=== PATIENT | male | born 1950 | race Caucasian/White ===

== ENCOUNTER 2020-07-10 14:38 | Outpatient (CLI) | payer MEDICARE, BC, OTHER, SELFPAY ==
--- NOTE | ~2020-07-10 | XR_ITS ---
EXAMINATION: XR hip BI 2V w AP pelvis EXAM DATE: 07/10/2020 15:07 INDICATION: M19.90 - Unspecified osteoarthritis, unspecified site. No injury. TECHNIQUE: Each hip imaged independently (separate right and also left hip) 'frog leg' and frontal p rojections for interpretation. Frontal projection pelvis. There is no prior study for comparison. FINDINGS: No radiographic evidence of hip avascular necrosis. There is mild to moderate symmetric bi lateral hip primary osteoarthritis. There is an indeterminate 1.5 cm sclerotic region projecting ove r the right iliac bone. Could be bone island but can't exclude osteoblastic disease. Probable moderat e to severe L5-S1 disc disease. There are no acute fractures identified. IMPRESSION: 1. Indeterminate left iliac sclerotic focus; recommend correlating with PSA and bone scan. 2. Mild to moderate bilateral hip osteoarthritis. Reviewed, dictated and finalized at location A. SEAT TRIMMER IMPRESSION: 1. Indeterminate left iliac sclerotic focus; recommend correlating with PSA an d bone scan. 2. Mild to moderate bilateral hip osteoarthritis.
== END 2020-07-10 14:39 | disposition home or self-care (01) ==
PROVIDERS: PCP Internal Medicine; Visit Provider Internal Medicine
DX: M16.0 Bilateral primary osteoarthritis of hip (principal)
CPT/HCPCS: 73521

== ENCOUNTER 2020-08-03 10:13 | Outpatient (CLI) | payer MEDICARE, BC, OTHER, SELFPAY ==
--- NOTE | ~2020-08-03 | US_ITS ---
EXAMINATION: US retroperitoneal comp DATE: 08/03/2020 10:34 INDICATION: Chronic kidney disease TECHNIQUE: Multiple ultrasound grayscale images of the kidneys were obtained. COMPARISON: None. FINDINGS: The right kidney measures 10.9 x 4.8 x 6.6 cm. The left kidney measures 10.2 x 5.7 x 5.4 cm. The kidn eys demonstrate normal echogenicity. There is no hydronephrosis in either kidney. No stones identifi ed. The bladder is normal. IMPRESSION: 1. Normal kidneys without hydronephrosis. Reviewed, dictated and finalized at location B. 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
== END 2020-08-03 10:14 | disposition home or self-care (01) ==
LOC: ANHIMG 10:14
PROVIDERS: PCP Internal Medicine; Visit Provider Internal Medicine
DX: N18.9 Chronic kidney disease, unspecified (principal)
CPT/HCPCS: 76770

== ENCOUNTER 2021-09-04 00:10 | Day surgery (SDC) | payer MEDICARE, BC, OTHER, SELFPAY ==
[2021-08-27 15:36] VITALS: BMI 27.9
[2021-09-04 09:00] VITALS: BP 150/72; PULSE 69; RESP 16; TEMP 36.7; O2SAT 100; BMI 28.8
[2021-09-04 09:47] LABS: Glucose Point of Care 136 mg/dl (65-105)
[2021-09-04] MEDS: LACTATED RINGERS 1,000 ML 150 ML IV CONT (09:49)
--- NOTE | 2021-09-04 10:19 | WPDANESEPPF ---
Anes - Initial Pre Proc Eval Procedure: Operation Date: 09/04/21 10:45 Proposed Procedures p Screening Colonoscopy - Chadd Verduzco MD Date/Time: 09/04/21 10:19 Surgeon: Chadd Verduzco MD Pre Op Diagnosis: neoplasm screening Patient Data Age: 71 Gender: M Height: 1.8 m Weight: 93.7 kg Last Vital Signs Temp 98.0 F 09/04/21 09:00 Pulse 69 09/04/21 09:00 Resp 16 09/04/21 09:00 BP 150/72 H 09/04/21 09:00 Pulse Ox 100 09/04/21 09:00 Allergies Allergy/AdvReac Type Severity Reaction Status Date / Time No Known Allergies Allergy Verified 09/04/21 09:20 Home Medications Medication Instructions Recorded Confirmed Type amiodarone 200 mg PO DAILY 05/28/19 09/04/21 History rivaroxaban [Xarelto] 20 mg PO DAILY 05/28/19 09/04/21 History blood-glucose meter #1 ea 11/01/20 09/04/21 Rx cholecalciferol (vitamin D3) 50 50 mcg PO DAILY #90 cap 11/02/20 09/04/21 Rx mcg (2,000 unit) capsule ezetimibe 10 mg tablet 10 mg PO DAILY #180 tablet 01/14/21 09/04/21 Rx pen needle, diabetic 32 gauge x #100 ea 01/14/21 09/04/21 Rx 5/32 blood sugar diagnostic #300 ea 01/30/21 09/04/21 Rx aspirin 81 mg chewable tablet 81 mg PO DAILY 02/15/21 09/04/21 History empagliflozin 25 mg tablet 25 mg PO DAILY #90 tablet 06/13/21 09/04/21 Rx semaglutide 1 mg/dose (4 mg/3 mL) 1 mg SUBCUT WEEKLY #3 ml 06/14/21 09/04/21 Rx subcutaneous pen injector rosuvastatin 40 mg tablet 40 mg PO DAILY #90 tablet 07/16/21 09/04/21 Rx sildenafil 100 mg tablet 100 mg PO DAILY PRN #30 tablet 07/18/21 09/04/21 Rx amlodipine 5 mg tablet 5 mg PO DAILY #30 tablet 07/31/21 09/04/21 Rx metoprolol tartrate 25 mg tablet 12.5 mg PO BID #30 tablet 08/04/21 09/04/21 Rx telmisartan 10 mg PO DAILY 08/27/21 09/04/21 History Laboratory Tests 09/04/21 09:26 POC Capillary Glucose 136 mg/dl H mg/dl (65-105) Patient hx anesthesia problems: none Family hx anesthesia problems: none Results Review: All pre-operative results and documents have been reviewed as part of the pre-operative evaluation. [facility] Past Medical History Medical History (Updated 07/18/21 @ 09:28 by Jones Kuhn MD) A-fib resolved Finger fracture Type II diabetes mellitus Surgical History Surgical History (Updated 07/10/20 @ 10:51 by Jones Kuhn MD) Hx of tonsillectomy Stented coronary artery x3 Social History Social History (Updated 07/18/21 @ 07:56 by Tara Carreno) Smoking status: Never smoker Second hand tobacco smoke exposure: Yes Alcohol intake: never Alcohol use details: Rarely Substance use: never Substance use type: does not use Living arrangements: with family Gender identity (if verbalized by the patient): Male Spiritual care concerns: No Anes - Eval Final PreProcedure Day of Procedure 09/04/21 10:19 Patient weight: overweight Heart: regular rate and rhythm Lungs: clear to auscultation Airway: Mallampati scale class II Neurological: alert and oriented Last oral intake: >/= 8 hours ASA classification: III Emergent: no Anesthetic plan: proceed Anesthesia type and monitoring: general GIVS and standard monitoring Results Review: All pre-operative results and documents have been reviewed as part of the pre-operative evaluation. Informed Consent: The patient's anesthetic plan and its attendant risks and benefits were discussed with the patient/family/POA. Questions were solicited and answers provided to the satisfaction of the patient/family/POA.
--- NOTE | 2021-09-04 10:38 | PM.HPGS ---
History of Present Illness History of Present Illness Consent: Risks, benefits, and alternatives have been discussed and questions answered. Patient agrees to proceed with procedure. Chief complaint: neoplasm screening Narrative: Sabino Pepper is a 71 year old male here for screening colonoscopy, last one 10 years ago. Review of Systems Constitutional: Constitutional: Denies headache(s) and Denies weakness Eyes: Eyes: Denies blurry vision ENT: Reports Normal hearing present, Denies headache(s) and Denies neck pain Cardiovascular: Cardiovascular: Denies chest pain and Denies dyspnea Respiratory: Respiratory: Denies dyspnea Gastrointestinal: Gastrointestinal: Reports no additional gastrointestinal complaints Genitourinary: Genitourinary: Denies dysuria Musculoskeletal: Musculoskeletal: Denies neck pain Integumentary/Breasts: Skin/Breast: Denies dry skin Neurologic: Reports Normal hearing present, Denies headache(s) and Denies weakness Psychiatric: Psychiatric: Denies anxiety Endocrine: Endocrine: Denies change in body appearance Hematologic/Lymphatic: Hematologic/Lymphatic: Denies easy bleeding Allergic/Immunologic: Allergic/Immunologic: Denies urticaria PMFSH Past Medical History Medical History (Updated 07/18/21 @ 09:28 by Jones Kuhn MD) A-fib resolved Finger fracture Type II diabetes mellitus Surgical History Surgical History (Updated 07/10/20 @ 10:51 by Jones Kuhn MD) Hx of tonsillectomy Stented coronary artery x3 Social History Social History (Updated 07/18/21 @ 07:56 by Tara Carreno) Smoking status: Never smoker Second hand tobacco smoke exposure: Yes Alcohol intake: never Alcohol use details: Rarely Substance use: never Substance use type: does not use Living arrangements: with family Gender identity (if verbalized by the patient): Male Spiritual care concerns: No Meds Home Medications and Allergies Home Medications Medication Instructions Recorded Confirmed Type amiodarone 200 mg PO DAILY 05/28/19 09/04/21 History rivaroxaban [Xarelto] 20 mg PO DAILY 05/28/19 09/04/21 History blood-glucose meter #1 ea 11/01/20 09/04/21 Rx cholecalciferol (vitamin D3) 50 50 mcg PO DAILY #90 cap 11/02/20 09/04/21 Rx mcg (2,000 unit) capsule ezetimibe 10 mg tablet 10 mg PO DAILY #180 tablet 01/14/21 09/04/21 Rx pen needle, diabetic 32 gauge x #100 ea 01/14/21 09/04/21 Rx blood sugar diagnostic #300 ea 01/30/21 09/04/21 Rx aspirin 81 mg chewable tablet 81 mg PO DAILY 02/15/21 09/04/21 History empagliflozin 25 mg tablet 25 mg PO DAILY #90 tablet 06/13/21 09/04/21 Rx semaglutide 1 mg/dose (4 mg/3 mL) 1 mg SUBCUT WEEKLY #3 ml 06/14/21 09/04/21 Rx subcutaneous pen injector rosuvastatin 40 mg tablet 40 mg PO DAILY #90 tablet 07/16/21 09/04/21 Rx sildenafil 100 mg tablet 100 mg PO DAILY PRN #30 tablet 07/18/21 09/04/21 Rx amlodipine 5 mg tablet 5 mg PO DAILY #30 tablet 07/31/21 09/04/21 Rx metoprolol tartrate 25 mg tablet 12.5 mg PO BID #30 tablet 08/04/21 09/04/21 Rx telmisartan 10 mg PO DAILY 08/27/21 09/04/21 History Allergies Allergy/AdvReac Type Severity Reaction Status Date / Time No Known Allergies Allergy Verified 09/04/21 09:20 Vital Signs Vital Signs - 24 hr 09/04/21 09:00 Temperature 98.0 F Pulse Rate 69 Respiratory Rate 16 Blood Pressure 150/72 H Pulse Oximetry 100 Exam Const: General: comfortable and no acute distress HENMT: General nose exam: Normal nares present Eyes: General: appearance normal, both eyes and all related structures Neck: Neck: no JVD Resp: Auscultation: clear to auscultation bilaterally Cardio: Rate: regular rate Rhythm: regular rhythm GI: Inspection: non-distended GI Palp: Yes Soft to palpation Skin: General skin exam: normal color Neuro: General: gait normal Speech: normal speech Extrem: General: normal to inspection Psych: Mental Status: mental status grossly norm
[2021-09-04 11:06] VITALS: BP 132/66; PULSE 63; RESP 18; O2SAT 98
[2021-09-04 11:16] VITALS: BP 126/73; PULSE 59; RESP 16; O2SAT 98
[2021-09-04 11:26] VITALS: BP 132/67; PULSE 59; RESP 14; O2SAT 98
== END 2021-09-04 11:36 | disposition home or self-care (01) ==
PROVIDERS: PCP Internal Medicine; Visit Provider Internal Medicine Gastroenterology
PROC: 0DJD8ZZ Inspection of Lower Intestinal Tract, Via Natural or Artificial Opening Endoscopic (ICD-10-PCS; CPT 45378; principal; 2021-09-04 10:45)
DX: Z12.11 Encounter for screening for malignant neoplasm of colon (principal); D12.2 Benign neoplasm of ascending colon; D12.3 Benign neoplasm of transverse colon; D12.4 Benign neoplasm of descending colon; K64.8 Other hemorrhoids; E11.9 Type 2 diabetes mellitus without complications; Z79.899 Other long term (current) drug therapy; Z79.84 Long term (current) use of oral hypoglycemic drugs
CPT/HCPCS: 45385; 82948; 88305; J2704; J7120

== ENCOUNTER 2022-06-20 00:16 | Day surgery (SDC) | payer MEDICARE, BC, OTHER, SELFPAY ==
[2022-06-19 15:38] VITALS: BMI 24.7
[2022-06-20] VITALS (10 sets, daily range): BP systolic 92–132; BP diastolic 58–75; PULSE 58–78; RESP 14–20; TEMP 36.2; O2SAT 94–100; BMI 26.4
--- NOTE | 2022-06-20 07:00 | ECG_ITS ---
Measurements Intervals [place] Rate: 76 P: RI: 0 QRS: 35 QRSD: 106 T: 70 QT: 421 QTc: 473 Interpretive Statements ATRIAL FIBRILLATION ABNORMAL RHYTHM ECG NO PREVIOUS ECG AVAILABLE FOR COMPARISON Electronically Signed On 06-20-2022 10:21:09 PARKING REGULATION ENFORCEMENT OFFICER by Anam Blank M.D.
[2022-06-20 08:22] LABS: Anion Gap 8 mmol/L (8-16); Blood Urea Nitrogen 24 mg/dL (9-20); Carbon Dioxide 27 mmol/L (22-30); Chloride 108 mmol/L (98-107); Estimated CRCL calculation 37 ml/min; Estimated Glomerular Filt Rate 37; Glucose 128 mg/dL (65-110); Potassium 4.4 mmol/L (3.4-5.0); Sodium 143 mmol/L (137-145)
--- NOTE | 2022-06-20 08:30 | ECG_ITS ---
Measurements Intervals [place] Rate: 61 P: 3 CT: 228 QRS: 36 QRSD: 97 T: 70 QT: 429 QTc: 433 Interpretive Statements SINUS RHYTHM WITH FIRST DEGREE AV BLOCK COMPARED TO ECG 06/20/2022 07:12:13 SINUS RHYTHM NOW PRESENT/REPLACES ATRIAL FIBRILLATION FOLLOWING CARDIOVERT Electronically Signed On 06-20-2022 10:21:46 RED CROSS WORKER by Anam Blank M.D.
--- NOTE | 2022-06-20 08:33 | WPDMODSED ---
Moderate Sedation Note-Pt Data Patient Data Diagnosis: Recurrent atrial fibrillation Present Complaint: Lightheadedness Procedure to be performed/Plan: DC cardioversion Allergies Allergy/AdvReac Type Severity Reaction Status Date / Time No Known Allergies Allergy Verified 06/20/22 07:15 Home Medications Medication Instructions Recorded Confirmed Type amiodarone 200 mg tablet 200 mg PO DAILY 05/28/19 06/20/22 History rivaroxaban 20 mg tablet (Xarelto) 20 mg PO DAILY 05/28/19 06/19/22 History blood-glucose meter (FreeStyle #1 ea 11/01/20 01/23/22 Rx Buena Lite kit) cholecalciferol (vitamin D3) 50 50 mcg PO DAILY #90 caps 11/02/20 06/20/22 Rx mcg (2,000 unit) capsule pen needle, diabetic 32 gauge x #100 ea 01/14/21 01/23/22 Rx 5/32 (BD Ultra-Fine Araceli Pen Needle) blood sugar diagnostic (FreeStyle #300 ea 01/30/21 01/23/22 Rx Lite Strips) aspirin 81 mg chewable tablet 81 mg PO DAILY 02/15/21 06/20/22 History tadalafil 20 mg tablet 20 mg PO DAILY PRN sexual activity 01/23/22 06/19/22 Rx #30 tabs ezetimibe 10 mg tablet (Zetia) 10 mg PO DAILY #180 tabs 01/29/22 06/20/22 Rx rosuvastatin 20 mg tablet 20 mg PO DAILY #90 tabs 02/04/22 06/20/22 Rx semaglutide 1 mg/dose (4 mg/3 mL) 1 mg (0.75 mL) subcut WEEKLY #3 mL 04/15/22 06/19/22 Rx subcutaneous pen injector empagliflozin 25 mg tablet 25 mg PO DAILY #90 tabs 06/10/22 06/20/22 Rx (Jardiance) amlodipine 5 mg tablet 5 mg PO PRN 06/19/22 06/19/22 History metoprolol tartrate 25 mg tablet 12.5 mg PO PRN 06/19/22 06/19/22 History telmisartan 20 mg tablet 10 mg PO PRN 06/19/22 06/19/22 History Current Medications: Active Medications Sodium Chloride (Normal Saline Iv) 1,000 mls @ 30 mls/hr IV CONT .Q24H CHON Sedation/Anesthesia: No previous sedation/anesthesia problems (including family history). [facility] Past Medical History Medical History A-fib resolved Finger fracture Type II diabetes mellitus Surgical History Surgical History Hx of tonsillectomy Stented coronary artery x3 Social History Social History Smoking status: Never smoker Second hand tobacco smoke exposure: Yes Alcohol intake: never Alcohol use details: Rarely Substance use: never Substance use type: does not use Living arrangements: with family Additional living arrangements comments: partner Gender identity (if verbalized by the patient): Male Spiritual care concerns: No Mod Sed Physical Exam Physical Exam Pre Procedural Exam: Normal: Appearance, Neck, Throat, Airway, Lungs, Heart Size, Heart Rate, Neuro Exam and Extremities and Variation: Heart Rhythm (Irregularly irregular) Hours since solid foods: 12 Hours since liquid intake: 12 Mallampati Classification: class II Internal Medicine - PN: Obj Da Vital Signs Vital Signs: Vital Signs - 24 hr 06/20/22 07:19 Temperature 36.2 C L Pulse Rate 78 Respiratory Rate 14 Blood Pressure 107/66 Pulse Oximetry 98 Oxygen Delivery Room Air Meds/Results Medications: Active Medications Generic Name Dose Route Start Last Admin Trade Name Freq PRN Reason Stop Dose Admin Sodium Chloride 1,000 mls @ 30 mls/hr 06/20/22 07:00 Normal Saline Iv IV CONT .Q24H [facility] Labs 06/20/22 07:45 Labs: Laboratory Results - last 24 hr 06/20/22 07:45 Sodium 143 Potassium 4.4 Chloride 108 H Carbon Dioxide 27 Anion Gap 8 BUN 24 H Creatinine 1.80 H Estim Creat Clear Calc 37 Estimated GFR 37 L Glucose 128 H Calcium 9.0 Magnesium 2.0 ASA Classification/Sedation ASA Classification/Sedation ASA Class: III Emergent: No Risks: Risks, benefits and alternatives explained and patient/family accepted plan for sedation. Patient re-evaluated immediately prior to sedation.
--- NOTE | 2022-06-20 08:42 | P.PCNCC_ITS ---
Cardiac Cath Procedure Note Date of procedure:: 06/20/22 Performing physician:: Anam Blank MD Indication:: Recurrent atrial fibrillation Brief clinical history:: This is a 72-year-old man with a history of coronary disease with previous interventional revascularization. He also has a history of atrial fibrillation which has been cardioverted several times and is currently taking amiodarone. He was recently seen in the office with a mildly symptomatic recurrence of atrial fibrillation and he admits to not taking his medication. He was placed back on amiodarone 400 mg daily and was scheduled for repeat cardioversion today. Procedure Procedure performed:: DC cardioversion Sedation/Medication given:: Propofol 50 mg IV push Estimated blood loss:: None Procedure note:: Patient was brought to the cardiac catheterization lab holding area in the postabsorptive state the defibrillator patches were placed in the AP position. He was sedated with propofol 50 mg IV push which provided excellent procedural sedation he was then cardioverted with 200 joules x1 shock in a synchronized fashion restoring normal sinus rhythm Findings:: As above Conclusion:: Successful uncomplicated DC cardioversion of atrial fib using 200 joules x1 shock. Patient will be maintained on amiodarone and seen in the office for ECG next week Anam Blank MD [facility]
== END 2022-06-20 10:05 | disposition home or self-care (01) ==
PROVIDERS: PCP Internal Medicine; Visit Provider Specialist
PROC: 5A2204Z Restoration of Cardiac Rhythm, Single (ICD-10-PCS; principal; 2022-06-20 08:30)
DX: I48.91 Unspecified atrial fibrillation (principal); I25.10 Atherosclerotic heart disease of native coronary artery without angina pectoris
CPT/HCPCS: 36415; 80048; 83735; 92960; J2704; J7030

== ENCOUNTER 2024-12-22 00:13 | Day surgery (SDC) | payer MEDICARE, BC, OTHER, SELFPAY ==
[2024-12-16 13:59] VITALS: BMI 24.4
--- NOTE | 2024-12-16 14:18 | PC.NURSE ---
Spoke with PATIENT regarding medication XARELTO. PATIENT verbalizes understanding that the last dose is to be taken on _12/19/2024_ and the Endoscopist will instruct them when to restart after the procedure.
--- OUTSIDE RECORDS SUMMARY | 2024-12-22 00:19 | XMS_ITS | Clinical Summary ---
Author Organization [facility] [address] Address [address] [place] [address] Care Team Providers Care Checker Stocker Name Role Phone Bridgett Monroy NP Primary Care Provider [phone] Allergies No known active allergies Medications aspirin 81 mg tablet take 1 tablet (81MG) by oral route every day 0 2 Active cholecalcifero l (VITAMIN D-3) 50,000 unit capsule TAKING 10,000 DAILY 1 Active semaglutide (OZEMPIC) 2 mg/dose (8 mg/3 mL) pen injector injection 1 Active empagliflozin (JARDIANCE) 25 mg tablet 1 Active rosuvastatin (CRESTOR) 20 mg tablet Take 1 tablet (20 mg total) by mouth daily 4 Active Xarelto 20 mg tablet TAKE 1 TABLET DAILY WITH THE EVENING MEAL 90 tablet 2 4 Active telmisartan (MICARDIS) 20 mg tablet Take 0.5 tablets (10 mg total) by mouth daily 5 Active amiodarone (PACERONE) 200 mg tablet TAKE 1 TABLET DAILY 90 tablet 5 Active amiodarone (PACERONE) 200 mg tablet TAKE 1 TABLET DAILY 90 tablet 5 05/29/20 25 Discontinued Active Problems Problem Noted Date Diagnosed Date Paroxysmal atrial fibrillation 01/01/2017 Status post coronary artery stent placement 12/05 Coronary arteriosclerosis in [place] artery 07/27 Overview (10/09/2016): Coronary arteriosclerosis in [place] artery Encounters Date Type Department Care Team Description 10/10/2024 9:30 AM CDT Office Visit [facility] [address] [place] [address] Jane Welch NP Coronary arteriosclerosis in [place] artery; Lipid screening; Paroxysmal atrial fibrillation (HCC); Chronic anticoagulation; Essential hypertension from Last 3 Months Surgical History Surgery Date Site/Laterality Comments CORONARY STENT PLACEMENT 03/06/2016 - 04/04/2016 2.75 x 23 mm Alpine Xience to the mid LAD CORONARY STENT PLACEMENT 06/05/2014 - 07/05/2014 2.75 x 23 mm Xience stent to the mid LAD, 2.75 x 15 mm Xience stent to the om 1 TONSILLECTOMY AND ADENOIDECTOMY FL FLUORO GUIDED LUMBAR PUNCTURE 01/22/2021 Right VASECTOMY 09/03/1988 - 10/03/1988 FRACTURE SURGERY 1977 Medical History Medical History Date Comments Hypertension Hypertension Pneumonia Pneumonia Coronary artery disease PAF (paroxysmal atrial fibrillation) (HCC) Diabetes (HCC) Clotting disorder since taking Xaralto Brain concussion 1974 Heart disease since 2008 Sleep apnea diagnosed 1993 Chronic kidney disease Family History Medical History Relation Name Comments Early Father Cataldo C Counts Heart attack Father Cataldo C Counts Hypertension Father Cataldo C Counts Obesity Father Cataldo C Counts Clotting disorder Mother Janell Mcdonald Counts Congenital heart disease Mother Janell Mcdonald Counts Early Son Jose Franklin Counts Relation Name Status Comments Father Cataldo Rigoberto Counts (Age 73) Mother Janell Mcdonald Counts (Age 80) Son Jose Franklin Counts Social History Tobacco Use Types Packs/Day Years Used Date Smoking Tobacco: Never Smokeless Tobacco: Never Alcohol Use Standard Drinks/Week Comments Yes 0 (1 standard drink = 0.6 oz pur e alcohol) Sex and Gender Information Value Date Recorded Sex Assigned at Male 09/10/2018 10:45 AM RN X RAY Legal Sex Male 1:19 AM RN X RAY Gender Identity Not on file Sexual Orientation Straight 09/10/2018 10 :45 AM RN X RAY Obstetrics History Last Filed Vital Signs Vital Sign Reading Time Taken Comments Blood Pressure 134/62 10/10/2024 9:52 AM CDT Pulse 62 10/10/2024 9:52 AM CDT Temperature - - Respiratory Rate 16 01/22/2021 10:12 AM CDT Oxygen Saturation 97% 10/10/2024 9:52 AM CDT Inhaled Oxygen Concentration - - Weight 87.1 kg (192 lb) 10/10/2024 9:52 AM CDT Height 182.9 cm (6') 10/10/2024 9:52 AM CDT Body Mass Index 26.04 10/10/2024 9:52 AM CDT Plan of Treatment Health Maintenance Due Date Last Done Comments Colon Cancer Screening-Colonoscopy 1951 Depression Screening 1950 Hepatitis C Screening 1951 Hepatitis B Screening 1969 Zoster Vaccine (1 of 2) 2001 Well Visit 65+ 2016 Fall Risk Assessment 01/22/2022 01/22/2021 DTaP/Tdap/Td Vaccine (2 - Td or Tdap) 08/31/2030 Pneumococcal vaccine 65+ Completed 05/04/2023 Influenza Vaccine Completed 05/31/2024, 04/20/2023 Procedures Procedure Name Priority Date/Time Associated Diagnosis Comments POCT LIPID PANEL Routine 10/10/2024 9:56 AM CDT Lipid screening LIPID PANEL Routine 10/04/2024 from Last 3 Months Results * POCT lipid panel (10/10/2024 9:56 AM CDT) Cholesterol, POC 157 mg/dL HDL, POC 47 mg/dL Triglycerides, POC 185 mg/dL LDL Cholesterol POC 73 mg/dL Chol/HDL Ratio, POC 1.5 Non-HDL Cholesterol, POC 110 mg/dL Cholesterol Total, POC 157 mg/dL Capillary blood 10/10/2024 9 :56 AM CDT Jane Welch NP POINT OF CARE TEST ORDERA BLES Final Result * (ABNORMAL) Lipid panel (10/04/2024) SCRIBED Cholesterol, Total 173 < - 200 [facility] SCRIBED HDL 52(A) > - 40 [facility] SCRIBED LDL 87 < - 100 [facility] SCRIBED Triglycerides 201(A) < - 150 [facility] Blood 10/04/2024 us Historical Provider LAB BLOOD ORDERABLES Fatuma rios Result [facility] from Last 3 Months Insurance [employer] MEDICARE MEDICARE [facility]IC[facility] FOR [facility]ER[facility] Care Teams Checker Stocker Relationship Specialty Start Date End Date Bridgett Monroy NP [address] [place] [address] PCP - General Nurse Practitioner 04/09/23
--- OUTSIDE RECORDS SUMMARY | 2024-12-22 00:19 | XMS_ITS | Referral Summary ---
Author Organization [facility] [address] Address [address] [place] [address] Care Team Providers Care Sample Tester Grinder Name Role Phone Bridgett Monroy NP Primary Care Provider [phone] Encounters Date Type Department Care Team Description 10/10/2024 9:30 AM CDT Office Visit [facility] Card[facility] [address] [place] [address] Jane Welch NP Coronary arteriosclerosis in circle artery; Lipid screening; Paroxysmal atrial fibrillation (HCC); Chronic anticoagulation; Essential hypertension from Last 3 Months Allergies No known active allergies Medications aspirin [...] TAKE 1 TABLET DAILY 90 tablet 5 12/02/19 25 Discontinued Active Problems Problem Noted Date Diagnosed Date Paroxysmal atrial fibrillation 01/01/2017 Status post coronary artery stent placement 12/05 Coronary arteriosclerosis in circle artery 07/27 Overview (10/09/2016): Coronary arteriosclerosis in circle artery Social History Tobacco Use Types Packs/Day Years Used Date Smoking Tobacco: Never Smokeless Tobacco: Never Alcohol Use Standard Drinks/Week Comments Yes 0 (1 standard drink = 0.6 oz pur e alcohol) Sex and Gender Information Value Date Recorded Sex Assigned at Male 09/10/2018 10:45 AM [employer]E [employer] 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 Legal Sex Male 1:19 AM [employer]IGE [employer] 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 Gender Identity Not on file Sexual Orientation Straight 09/10/2018 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 Last Filed Vital Signs Vital Sign Reading [...] 10/10/2024 9:52 AM CDT Plan of Treatment Not on file Procedures Procedure Name Priority Date/Time Associated Diagnosis [...] 201(A) < - 150 [facility] Blood 10/04/2024 Historical Provider LAB BLOOD ORDERABLES Fatuma rios Result [facility] from Last 3 Months Insurance [facility] [employer] MEDICARE MEDICARE FOR LIFE [facility] TRADITIONAL MEDICARE FOR LIFE [facility] Care Teams Sample Tester Grinder Relationship Specialty Start Date End Date Bridgett Monroy NP [address] [place] [address] PCP - General Nurse Practitioner 04/09/23
--- OUTSIDE RECORDS SUMMARY | 2024-12-22 00:19 | XMS_ITS | Continuity of Care Document ---
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 It does not include entries that were removed or entered in error. Problem Status Onset Date Problem Type Date of Resolution Comments Source ASSESSMENT OF PATIENT CONDITION WORK STATUS Inactive Condition DoD red blood in bowel movement (hematochezia) Inactive Condition [facility] UPPER RESPIRATORY INFECTION Inactive Condition DoD HEARING LOSS Active Condition DoD visit: ears/hearing exam for hearing conservation, treatment Active Condition [facility] visit for: services physical chcf Active Condition [facility] REFRACTIVE ERROR Inactive Condition [facility] SINUSITIS ACUTE FRONTAL Inactive Condition [facility] ORTHOSTATIC HYPOTENSION IDIOPATHIC Inactive Condition [facility] GASTROENTERITIS Inactive Condition [facility] ACUTE BRONCHITIS Active Condition [facility] Need For Vaccination Typhoid Active Condition [facility] visit for: screening exam pulmonary tuberculosis Active Condition [facility] Need For Vaccination Hepatitis B Active Condition [facility] Vaccines Prophylactic Need Against Bacterial Diseases Active Condition [facility] visit for: services physical Active Condition Medically cleared for deployment [facility] Atrial fibrillation Active Condition [facility] Benign essential hypertension Active Condition [facility] - Benign paroxysmal positional vertigo Active Condition [facility] Chronic rhinitis Active Condition [facility] CKD - chronic kidney disease Active Condition [facility] Coronary arteriosclerosis Active Condition Aug 31 1 Entered By: RACHNA ZAVALA Comment: s/p PCI 3 stents [facility] Diabetes mellitus without complication Active Condition [facility] Exposure to Potentially Hazardous Substance ([facility] [id number]) Active Condition [facility] Hyperlipidemia Active Condition [facility] ADRYAN - Obstructive sleep apnea Active Condition [facility] Vitamin D deficiency [facility] Diagnosis: ICD-10-CM E11.9 Type 2 diabetes mellitus without complications Active Diagnosis [facility] Diagnosis: ICD-10-CM H81.11 Benign paroxysmal vertigo, right ear Active Diagnosis [facility] Diagnosis: ICD-10-CM G47.33 Obstructive sleep apnea (adult) (pediatric) Active Diagnosis [facility] Diagnosis: ICD-10-CM R06.83 Snoring Active Diagnosis [facility] Diagnosis: ICD-10-CM 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 Medication Details Route Status Patient Instructions Prescription Expires Prescription Number Last Dispense Date Ordering Provider Order Date Order Qty Source AMIODARONE HCL (PACERONE) 200MG TAB TAKE ONE TABLET BY MOUTH ONCE A DAY ORAL ACTIVE JITENDRA ZAVALA N [address] [facility] ASPIRIN 81MG TAB,EC TAKE ONE TABLET BY MOUTH ONCE A DAY ORAL ACTIVE JITENDRA ZAVALA N [address] [facility] EMPAGLIFLOZ IN 25MG TAB TAKE ONE TABLET BY MOUTH ONCE A DAY ORAL ACTIVE MIRIAM FRAZIER [address] [facility] ERGOCALCIFE ROL 1,250MCG (50,000UNIT ) CAP TAKE 1 CAPSULE BY MOUTH EVERY WEEK ORAL ACTIVE JITENDRA ZAVALA N [address] [facility] FLUTICASONE PROPIONATE 50MCG/SPRAY SOLN,NASAL, 16GM INSTILL 2 SPRAYS IN NOSTRIL( S) ONCE A DAY FOR CHRONIC RHINOSIN USITIS (MUST BE USED DIRECTED FOR MINIMUM OF 21 DAYS TO PROVIDE ADEQUATE BENEFITS ) NASAL ACTIVE 03/23/2025 [id number] MIRIAM FRAZIER [address] [facility] FLUTICASONE PROPIONATE 50MCG/SPRAY SOLN,NASAL, 16GM INSTILL 2 SPRAYS IN NOSTRIL( S) ONCE A DAY FOR CHRONIC RHINOSIN USITIS (MUST BE USED DIRECTED FOR MINIMUM OF 21 DAYS TO PROVIDE ADEQUATE BENEFITS ) NASAL DISCONT INUED 11/09/2024 [id number] MIRIAM FRAZIER [address] [facility] RIVAROXABAN 20MG TAB TAKE ONE TABLET BY MOUTH ONCE A DAY ORAL ACTIVE MIRIAM FRAZIER [address] [facility] ROSUVASTATI N [place] 40MG TAB TAKE ONE TABLET BY MOUTH EVERY EVENING ORAL ACTIVE SALLYJITENDRA CLIFFORD N [address] [facility] SEMAGLUTIDE 1MG/0.75ML INJ,SOLEDITH Mitchell N,3ML INJECT 1MG (0.75ML) UNDER THE SKIN EVERY WEEK SUBCUT ANEOUS ACTIVE FREDDIEMIRIAM Maryjane [address] [facility] TELMISARTAN TAB TAKE 10MG BY MOUTH ONCE A DAY ORAL ACTIVE FREDDIEMIRIAM Maryjane [address] [facility] Allergies, Adverse Reactions, Alerts Combined list of allergies from Department of Defense and Veterans Affairs facilities. It does not include entries that were removed or entered in error. Substance Category Reaction Severity Reaction type Status Date Reported Comments Source No Known Allergies Drug allergy (disorder) active 10/13/2007 Mattie Echeverria [place] Immunizations Combined list of available immunizations from the Department of Defense and Veterans Affairs facilities. 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 Status Comments Source INFLUENZA, HIGH-DOSE, TRIVALENT, PF 2023 LIBORIO ALVAREZ LEFT DELTO ID [id number] 135 complet ed [facility] PNEUMOCOCCAL CONJUGATE PCV20, POLYSACCHARID E [id number] CONJUGATE, ADJUVANT, PF 2022 LIBORIO ALVAREZ RIGHT DELTO ID [id number] complet ed [facility] INFLUENZA, INJECTABLE, QUADRIVALENT, PRESERVATIVE FREE 2022 KOLTON RAMÍREZ A LEFT DELTO ID [id number] 150 complet ed Completed Series, [facility] COVID-19 (MODERNA), MRNA, LNP-S, PF, 100 MCG/0.5 ML DOSE 2 2020 207 complet ed MOD; [id number]; [address] [facility] COVID-19 (MODERNA), MRNA, LNP-S, PF, 100 MCG/0.5 ML DOSE 1 2020 207 complet ed MOD; [id number]; [address] [facility] TDAP [address] [facility] influenza virus vaccine, split virus (incl. purified surface antigen)-reti red CODE 1 2007 UNK 15 Unknown (UNK) comple t ed influenza virus vaccine, split virus (incl. purified surface antigen)- retired CODE DoD hepatitis B vaccine, adult dosage 3 2007 [id number] 43 Smithine (SKB) complet ed hepatitis B vaccine, adult dosage DoD influenza virus vaccine, split virus (incl. purified surface antigen)-reti red CODE 1 2006 [id number] 15 Unknown (UNK) complet ed influenza virus vaccine, split virus (incl. purified surface antigen)- retired CODE DoD anthrax vaccine [id number] [facility] ([facility]) complet ed anthrax vaccine DoD hepatitis B vaccine, adult dosage 2 2006 [id number] 43 Smithine (SKB) complet ed hepatitis B vaccine, adult dosage DoD typhoid Vi capsular polysaccharid e vaccine 1 2006 [id number] Sanofi Pasteur ([facility]) complet ed typhoid Vi capsular polysacch aride vaccine DoD tetanus and diphtheria toxoids, adsorbed, preservative free, for adult use (2 Lf of tetanus toxoid and 2 Lf of diphtheria toxoid) 1 2005 UNK 09 Unknown (UNK) comple t ed tetanus and diphtheri a toxoids, adsorbed, preservat thea free, for adult use (2 Lf of tetanus toxoid and 2 Lf of diphtheri a toxoid) DoD influenza virus vaccine, split virus (incl. purified surface antigen)-reti red CODE 1 2004 UNK 15 Sanofi Pasteur ([facility]) complet ed influenza virus vaccine, split virus (incl. purified surface antigen)- retired CODE DoD typhoid Vi capsular polysaccharid e vaccine 1 2004 [id number] Sanofi Pasteur ([facility]) complet ed typhoid Vi capsular polysacch aride vaccine DoD vaccinia (smallpox) vaccine 1 2002 [id number] Michele (RANDA) complet ed vaccinia (smallpox ) vaccine DoD influenza virus vaccine, split virus (incl. purified surface antigen)-reti red CODE 1 2002 [id number] 15 Sanofi Pasteur ([facility]) complet ed influenza virus vaccine, split virus (incl. purified surface antigen)- retired CODE DoD anthrax vaccine 1 2002 [id number] [facility] complet ed anthrax vaccine DoD hepatitis B vaccine, adult dosage 1 2002 [id number] 43 Merck (MSD) complet ed hepatitis B vaccine, adult dosage DoD hepatitis A vaccine, adult dosage 1 2002 [id number] Merck (MSD) complet ed hepatitis A vaccine, adult dosage DoD influenza virus vaccine, whole virus 1 2001 Unknown, Provider [id number] Sanofi Pasteur ([facility]) complet ed influenza virus vaccine, whole virus DoD meningococcal polysaccharid e vaccine (MPSV4) 1 2001 Unknown, Provider [id number] Sanofi Pasteur ([facility]) complet ed meningoco ccal polysacch aride vaccine (MPSV4) DoD hepatitis A vaccine, adult dosage 1 2001 UNK 52 Unknown (UNK) comple t ed hepatitis A vaccine, adult dosage DoD tuberculin skin test; purified protein derivative solution, intradermal 1 2001 Unknown, Provider [id number] Sanofi Pasteur ([facility]) complet ed tuberculi n skin test; purified protein derivativ e solution, intraderm al DoD typhoid Vi capsular polysaccharid e vaccine 1 2001 Unknown, Provider [id number] Sanofi Pasteur ([facility]) complet ed typhoid Vi capsular polysacch aride vaccine DoD tetanus and diphtheria toxoids, adsorbed, preservative free, for adult use (2 Lf of tetanus toxoid and 2 Lf of diphtheria toxoid) 1 1996 UNK 09 Unknown (UNK) comple t ed tetanus and diphtheri a toxoids, adsorbed, preservat thea free, for adult use (2 Lf of tetanus toxoid and 2 Lf of diphtheri a toxoid) DoD measles, mumps and rubella virus vaccine 1 1973 UNK 03 Unknown (UNK) comple t ed measles, mumps and rubella virus vaccine DoD Results Combined list of recent chemistry, hematology and other laboratory results from Department of Defense and Veterans Affairs, ranging from 15 months to all on record, depending upon the facility. Order Name Results Value Reference Range Date Interpretation Specimen Comments Source COMPREHENS THEA METABOLIC PANEL CREATININE [MASS/VOLUM E] IN SERUM OR PLASMA 1.5 mg/dL .7 - 1.3 05/31 H Specimen Type: PLASMA No comment entered. Ordering Provider: MIRIAM FRAZIER Report Released Date/Time : May 23, 2024 12:13 PM Reporting Lab: [facility] [address] [place], [place] [phone] 8 Performin g Lab: [place] [phone] [facility] COMPREHENS THEA METABOLIC PANEL UREA NITROGEN [MASS/VOLUM E] IN SERUM OR PLASMA 15 mg/dL 9.0 - 25.0 05/31 Specimen Type: PLASMA No comment entered. Ordering Provider: MIRIAM FRAZIER Report Released Date/Time : May 23, 2024 12:13 PM Reporting Lab: [place] [phone] Performin g Lab: [place] [address] [facility] COMPREHENS THEA METABOLIC PANEL GLUCOSE [MASS/VOLUM E] IN SERUM OR PLASMA 144 mg/dL 72 - 99 05/31 H Specimen Type: PLASMA No comment entered. Ordering Provider: MIRIAM FRAZIER Report Released Date/Time : May 23, 2024 12:13 PM Reporting Lab: [place] [phone] Performin g Lab: [place] [address] [facility] COMPREHENS THEA METABOLIC PANEL SODIUM [MOLES/VOLU ME] IN SERUM OR PLASMA 138 meq/L 136 - 145 05/31 Specimen Type: PLASMA No comment entered. Ordering Provider: MIRIAM FRAZIER Report Released Date/Time : May 23, 2024 12:13 PM Reporting Lab: [place] [phone] Performin g Lab: [place] [phone] [facility] COMPREHENS THEA METABOLIC PANEL POTASSIUM [MOLES/VOLU ME] IN SERUM OR PLASMA 4.2 meq/L 3.5 - 5 05/31 Specimen Type: PLASMA No comment entered. Ordering Provider: MIRIAM FRAZIER Report Released Date/Time : May 23, 2024 12:13 PM Reporting Lab: [place] [phone] Performin g Lab: [facility] [address] [facility] [phone] [facility] COMPREHENS THEA METABOLIC PANEL CHLORIDE [MOLES/VOLU ME] IN SERUM OR PLASMA 104 meq/L 98 - 107 05/31 Specimen Type: PLASMA No comment entered. Ordering Provider: MIRIAM FRAZIER Report Released Date/Time : May 23, 2024 12:13 PM Reporting Lab: [facility] [address] [facility] [phone] 8 Performin g Lab: [facility] [address] [place] [phone] [facility] COMPREHENS THEA METABOLIC PANEL CARBON DIOXIDE, TOTAL [MOLES/VOLU ME] IN SERUM OR PLASMA 26 meq/L 22 - 31 05/31 Specimen Type: PLASMA No comment entered. Ordering Provider: MIRIAM FRAZIER Report Released Date/Time : May 23, 2024 12:13 PM Reporting Lab: [facility] [address] [place] [phone] Performin g Lab: [facility] [address] [place] [phone] [facility] COMPREHENS THEA METABOLIC PANEL CALCIUM [MASS/VOLUM E] IN SERUM OR PLASMA 9.3 mg/dL 8.4 - 10.4 05/31 Specimen Type: PLASMA No comment entered. Ordering Provider: MIRIAM FRAZIER Report Released Date/Time : May 23, 2024 12:13 PM Reporting Lab: [facility] [address] [place] [phone] Performin g Lab: [facility] [address] [place] [phone] [facility] COMPREHENS THEA METABOLIC PANEL PROTEIN [MASS/VOLUM E] IN SERUM OR PLASMA 6.5 g/dL 6.0 - 8.6 05/31 Specimen Type: PLASMA No comment entered. Ordering Provider: MIRIAM FRAZIER Report Released Date/Time : May 23, 2024 12:13 PM Reporting Lab: [facility] [address] [place] [phone] Performin g Lab: [facility] [address] [place], [place] [phone] [facility] COMPREHENS THEA METABOLIC PANEL ALBUMIN [MASS/VOLUM E] IN SERUM OR PLASMA 3.8 g/dL 3.4 - 5.0 05/31 Specimen Type: PLASMA No comment entered. Ordering Provider: MIRIAM FRAZIER Report Released Date/Time : May 23, 2024 12:13 PM Reporting Lab: [facility] [address] [place] [phone] Performin g Lab: [facility] [address] [facility] COMPREHENS THEA METABOLIC PANEL BILIRUBIN.T OTAL [MASS/VOLUM E] IN SERUM OR PLASMA 0.5 mg/dL 0.2 - 1.2 05/31 Specimen Type: PLASMA No comment entered. Ordering Provider: MIRIAM FRAZIER Report Released Date/Time : May 23, 2024 12:13 PM Reporting Lab: [facility] [address] 8 Performin g Lab: [facility] [address] [facility] COMPREHENS THEA METABOLIC PANEL ALKALINE PHOSPHATASE [ENZYMATIC ACTIVITY/VO LUME] IN SERUM OR PLASMA 67 U/L 40 - 150 05/31 Specimen Type: PLASMA No comment entered. Ordering Provider: MIRIAM FRAZIER Report Released Date/Time : May 23, 2024 12:13 PM Reporting Lab: [facility] [address] [place] [phone] 8 Performin g Lab: [address] [facility] COMPREHENS THEA METABOLIC PANEL ASPARTATE AMINOTRANSF ERASE [ENZYMATIC ACTIVITY/VO LUME] IN SERUM OR PLASMA 17 U/L 5 - 34 05/31 Specimen Type: PLASMA No comment entered. Ordering Provider: MIRIAM FRAZIER Report Released Date/Time : May 23, 2024 12:13 PM Reporting Lab: [facility] [address] [place] [phone] 8 Performin g Lab: [facility] [address] [facility] COMPREHENS THEA METABOLIC PANEL ALANINE AMINOTRANSF ERASE [ENZYMATIC ACTIVITY/VO LUME] IN SERUM OR PLASMA 17 U/L 8 - 40 05/31 Specimen Type: PLASMA No comment entered. Ordering Provider: MIRIAM FRAZIER Report Released Date/Time : May 23, 2024 12:13 PM Reporting Lab: [facility] [address] [place] [address] 8 Performin g Lab: [place] [address] [facility] COMPREHENS THEA METABOLIC PANEL GLOMERULAR FILTRATION RATE/1.73 SQ M.PREDICTED [VOLUME RATE/AREA] IN SERUM, PLASMA OR BLOOD BY CREATININE- BASED FORMULA (CKD-EPI 2020) 49 05/31 Specimen Type: PLASMA No comment entered. Ordering Provider: MIRIAM FRAZIER Report Released Date/Time : May 23, 2024 12:13 PM Reporting Lab: [place] [address] 8 Performin g Lab: [place] [address] [facility] CBC LEUKOCYTES [#/VOLUME] IN BLOOD BY AUTOMATED COUNT 5.0 10*3/uL 3.6 - 11.2 05/31 Specimen Type: BLOOD No comment entered. Ordering Provider: MIRIAM FRAZIER Report Released Date/Time : May 23, 2024 12:13 PM Reporting Lab: [place] [address] 8 Performin g Lab: [place] [address] [facility] CBC ERYTHROCYTE S [#/VOLUME] IN BLOOD BY AUTOMATED COUNT 5.33 10*6/uL 4.10 - 5.70 05/31 Specimen Type: BLOOD No comment entered. Ordering Provider: MIRIAM FRAZIER Report Released Date/Time : May 23, 2024 12:13 PM Reporting Lab: [place] [address] 8 Performin g Lab: [place] [address] [facility] CBC HEMOGLOBIN [MASS/VOLUM E] IN BLOOD 15.0 g/dL 13.1 - 16.8 05/31 Specimen Type: BLOOD No comment entered. Ordering Provider: MIRIAM FRAZIER Report Released Date/Time : May 23, 2024 12:13 PM Reporting Lab: [facility] [address] [place] [address] 8 Performin g Lab: [facility] [address] [place] [address] [facility] CBC HEMATOCRIT [VOLUME FRACTION] OF BLOOD 46.3 38.2 - 48.4 05/31 Specimen Type: BLOOD No comment entered. Ordering Provider: MIRIAM FRAZIER Report Released Date/Time : May 23, 2024 12:13 PM Reporting Lab: [place] [address] 8 Performin g Lab: [facility] [address] [place] [address] [facility] CBC MCV [ENTITIC VOLUME] BY AUTOMATED COUNT 86.9 fL 80.0 - 100.0 05/31 Specimen Type: BLOOD No comment entered. Ordering Provider: MIRIAM FRAZIER Report Released Date/Time : May 23, 2024 12:13 PM Reporting Lab: [facility] [address] [place] [address] 8 Performin g Lab: [place] [address] [facility] CBC MCH [ENTITIC MASS] BY AUTOMATED COUNT 28.1 pg 27.0 - 34.0 05/31 Specimen Type: BLOOD No comment entered. Ordering Provider: MIRIAM FRAZIER Report Released Date/Time : May 23, 2024 12:13 PM Reporting Lab: [facility] [address] [place] [address] 8 Performin g Lab: [facility] [address] [place] [address] [facility] CBC MCHC [MASS/VOLUM E] BY AUTOMATED COUNT 32.4 g/dL 33.0 - 36.0 05/31 L Specimen Type: BLOOD No comment entered. Ordering Provider: MIRIAM FRAZIER Report Released Date/Time : May 23, 2024 12:13 PM Reporting Lab: [address] [place] [phone] Performin g Lab: [facility] [address] [place] [phone] [facility] CBC PLATELETS [#/VOLUME] IN BLOOD BY AUTOMATED COUNT 178 10*3/uL 150 - 400 05/31 Specimen Type: BLOOD No comment entered. Ordering Provider: MIRIAM FRAZIER Report Released Date/Time : May 23, 2024 12:13 PM Reporting Lab: [facility] [address] [place], [place] [phone] 8 Performin g Lab: [facility] [address] [facility] CBC PLATELET MEAN VOLUME [ENTITIC VOLUME] IN BLOOD BY AUTOMATED COUNT 10.2 fL 7.5 - 11.2 05/31 Specimen Type: BLOOD No comment entered. Ordering Provider: MIRIAM FRAZIER Report Released Date/Time : May 23, 2024 12:13 PM Reporting Lab: [facility] [address] [place], [place] [phone] 8 Performin g Lab: [facility] [address] [place], [place] [phone] [address] [facility] CBC ERYTHROCYTE DISTRIBUTIO N WIDTH [RATIO] BY AUTOMATED COUNT 12.8 11.8 - 15.1 05/31 Specimen Type: BLOOD No comment entered. Ordering Provider: MIRIAM FRAZIER Report Released Date/Time : May 23, 2024 12:13 PM Reporting Lab: [facility] [address] [place] [phone] 8 Performin g Lab: [facility] [address] [place] [phone] [facility] CBC LYMPHOCYTES /100 LEUKOCYTES IN BLOOD BY AUTOMATED COUNT 30.7 05/31 Specimen Type: BLOOD No comment entered. Ordering Provider: MIRIAM FRAZIER Report Released Date/Time : May 23, 2024 12:13 PM Reporting Lab: [facility] [address] [place], [place] [phone] 8 Performin g Lab: [facility] [address] [place], [place] [phone] [address] [facility] CBC MONOCYTES/1 00 LEUKOCYTES IN BLOOD BY AUTOMATED COUNT 5.4 05/31 Specimen Type: BLOOD No comment entered. Ordering Provider: MIRIAM FRAZIER Report Released Date/Time : May 23, 2024 12:13 PM Reporting Lab: [facility] [address] 8 Performin g Lab: [facility] [address] [facility] CBC NEUTROPHILS /100 LEUKOCYTES IN BLOOD BY AUTOMATED COUNT 61.1 05/31 Specimen Type: BLOOD No comment entered. Ordering Provider: MIRIAM FRAZIER Report Released Date/Time : May 23, 2024 12:13 PM Reporting Lab: [facility] [address] [place] [address] 8 Performin g Lab: [facility] [address] [place] [address] [facility] CBC EOSINOPHILS /100 LEUKOCYTES IN BLOOD BY AUTOMATED COUNT 1.6 05/31 Specimen Type: BLOOD No comment entered. Ordering Provider: MIRIAM FRAZIER Report Released Date/Time : May 23, 2024 12:13 PM Reporting Lab: [facility] [address] [place] [address] 8 Performin g Lab: [facility] [address] [place] [address] [facility] CBC BASOPHILS/1 00 LEUKOCYTES IN BLOOD BY AUTOMATED COUNT 1.0 05/31 Specimen Type: BLOOD No comment entered. Ordering Provider: MIRIAM FRAZIER Report Released Date/Time : May 23, 2024 12:13 PM Reporting Lab: [facility] [address] [place] [address] 8 Performin g Lab: [facility] [address] [place] [address] [facility] CBC LYMPHOCYTES [#/VOLUME] IN BLOOD BY AUTOMATED COUNT 1.53 10*3/uL 0.77 - 4.50 05/31 Specimen Type: BLOOD No comment entered. Ordering Provider: MIRIAM FRAZIER Report Released Date/Time : May 23, 2024 12:13 PM Reporting Lab: [facility] [address] [place] [address] 8 Performin g Lab: [address] [place] [address] [facility] CBC MONOCYTES [#/VOLUME] IN BLOOD BY AUTOMATED COUNT 0.27 10*3/uL 0.19 - 0.8 05/31 Specimen Type: BLOOD No comment entered. Ordering Provider: MIRIAM FRAZIER Report Released Date/Time : May 23, 2024 12:13 PM Reporting Lab: [place] [address] 8 Performin g Lab: [place] [address] [facility] CBC NEUTROPHILS [#/VOLUME] IN BLOOD BY AUTOMATED COUNT 3.05 10*3/uL 2.10 - 8.00 05/31 Specimen Type: BLOOD No comment entered. Ordering Provider: MIRIAM FRAZIER Report Released Date/Time : May 23, 2024 12:13 PM Reporting Lab: [place] [address] 8 Performin g Lab: [place] [address] [facility] CBC EOSINOPHILS [#/VOLUME] IN BLOOD BY AUTOMATED COUNT 0.08 10*3/uL 0.00 - 0.60 05/31 Specimen Type: BLOOD No comment entered. Ordering Provider: MIRIAM FRAZIER Report Released Date/Time : May 23, 2024 12:13 PM Reporting Lab: [place] [address] 8 Performin g Lab: [place] [address] [facility] CBC BASOPHILS [#/VOLUME] IN BLOOD BY AUTOMATED COUNT 0.05 10*3/uL 0.00 - 0.20 05/31 Specimen Type: BLOOD No comment entered. Ordering Provider: MIRIAM FRAZIER Report Released Date/Time : May 23, 2024 12:13 PM Reporting Lab: [place] [address] 8 Performin g Lab: [place] [address] [facility] CBC IMMATURE GRANULOCYTE S/100 LEUKOCYTES IN BLOOD BY AUTOMATED COUNT 0.2 05/31 Specimen Type: BLOOD No comment entered. Ordering Provider: MIRIAM FRAZIER Report Released Date/Time : May 23, 2024 12:13 PM Reporting Lab: [place] [address] 8 Performin g Lab: [place] [address] [facility] CBC IMMATURE GRANULOCYTE S [#/VOLUME] IN BLOOD BY AUTOMATED COUNT 0.01 10*3/uL 0.00 - 0.05 05/31 Specimen Type: BLOOD No comment entered. Ordering Provider: MIRIAM FRAZIER Report Released Date/Time : May 23, 2024 12:13 PM Reporting Lab: [place] [address] 8 Performin g Lab: [place] [address] [facility] HGA1C HEMOGLOBIN A1C/HEMOGLO BIN.TOTAL IN BLOOD 6.1 4.0 - 6.0 05/31 H Specimen Type: BLOOD No comment entered. Ordering Provider: MIRIAM FRAZIER Report Released Date/Time : May 23, 2024 12:13 PM Reporting Lab: [place] [address] 8 [facility]formin g Lab: [place] [address] [facility] LIPID PANEL (MA) CHOLESTEROL [MASS/VOLUM E] IN SERUM OR PLASMA 129 mg/dL 0 - 200 05/31 Specimen Type: PLASMA No comment entered. Ordering Provider: MIRIAM FRAZIER Report Released Date/Time : May 23, 2024 12:13 PM Reporting Lab: [place] [address] 8 [facility] Lab: [address] LIPID PANEL (MA) TRIGLYCERID E [MASS/VOLUM E] IN SERUM OR PLASMA 126 mg/dL 0 - 150 05/31 Specimen Type: PLASMA No comment entered. Ordering Provider: MIRIAM FRAZIER Report Released Date/Time : May 23, 2024 12:13 PM Reporting Lab: [facility] [address] [place] [address] 8 Performin g Lab: [facility] [address] [place] [address] [facility] LIPID PANEL (MA) CHOLESTEROL IN LDL [MASS/VOLUM E] IN SERUM OR PLASMA BY CALCULATION 63 mg/dL 05/31 Specimen Type: PLASMA No comment entered. Ordering Provider: MIRIAM FRAZIER Report Released Date/Time : May 23, 2024 12:13 PM Reporting Lab: [facility] [address] [place] [address] 8 [facility] g Lab: [place] [address] [facility] LIPID PANEL (MA) CHOLESTEROL IN HDL [MASS/VOLUM E] IN SERUM OR PLASMA 41 mg/dL 40 05/31 Specimen Type: PLASMA No comment entered. Ordering Provider: MIRIAM FRAZIER Report Released Date/Time : May 23, 2024 12:13 PM Reporting Lab: [place] [address] 8 [facility] Lab: [address] VITAMIN D, 25-HYDROXY 25-HYDROXYV ITAMIN D3 [MASS/VOLUM E] IN SERUM OR PLASMA 43.3 ng/mL 30 - 96 05/31 Specimen Type: SERUM No comment entered. Ordering Provider: MIRIAM FRAZIER Report Released Date/Time : May 23, 2024 12:13 PM Reporting Lab: [place] [address] 8 [facility] Lab: [place] [address] [facility] TSH (MA-PB) THYROTROPIN [UNITS/VOLU ME] IN SERUM OR PLASMA 4.271 u[IU]/mL 0.470 - 5.000 05/31 Specimen Type: SERUM No comment entered. Ordering Provider: MIRIAM FRAZIER Report Released Date/Time : May 23, 2024 12:13 PM Reporting Lab: [place] [address] 8 [facility] Lab: [facility] [address] [place] [address] [facility] CLEAN CATCH URINALYSIS (MA-EV) COLOR OF URINE Light-Yel low [none] 05/31 Specimen Type: URINE No comment entered. Ordering Provider: MIRIAM FRAZIER Report Released Date/Time : May 23, 2024 12:13 PM Reporting Lab: [facility] [address] [place] [address] 8 Performin g Lab: [facility] [address] [place] [address] [facility] CLEAN CATCH URINALYSIS (MA-EV) SPECIFIC GRAVITY OF URINE 1.023 05/31 Specimen Type: URINE No comment entered. Ordering Provider: MIRIAM FRAZIER Report Released Date/Time : May 23, 2024 12:13 PM Reporting Lab: [facility] [address] [place] [address] 8 [facility] g Lab: [place] [address] [facility] CLEAN CATCH URINALYSIS (MA-EV) UROBILINOGE N [MASS/VOLUM E] IN URINE BY TEST STRIP Normalmg/ dL 0.1 - 1.0 05/31 Specimen Type: URINE No comment entered. Ordering Provider: MIRIAM FRAZIER Report Released Date/Time : May 23, 2024 12:13 PM Reporting Lab: [facility] [address] [place] [address] 8 Performin g Lab: [place] [address] [address] [place] [address] [facility] CLEAN CATCH URINALYSIS (MA-EV) BILIRUBIN.T OTAL [PRESENCE] IN URINE BY TEST STRIP Negativem g/dL 05/31 Specimen Type: URINE No comment entered. Ordering Provider: MIRIAM FRAZIER Report Released Date/Time : May 23, 2024 12:13 PM Reporting Lab: [facility] [address] [place] [address] 8 Performin g Lab: [facility] [address] [place] [address] [facility] CLEAN CATCH URINALYSIS (MA-EV) KETONES [MASS/VOLUM E] IN URINE BY TEST STRIP Negativem g/dL 05/31 Specimen Type: URINE No comment entered. Ordering Provider: MIRIAM FRAZIER Report Released Date/Time : May 23, 2024 12:13 PM Reporting Lab: [facility] [address] [place] [address] 8 Performin g Lab: [place] [address] [facility] CLEAN CATCH URINALYSIS (MA-EV) PROTEIN [MASS/VOLUM E] IN URINE BY TEST STRIP Negativem g/dL 05/31 Specimen Type: URINE No comment entered. Ordering Provider: MIRIAM FRAZIER Report Released Date/Time : May 23, 2024 12:13 PM Reporting Lab: [place] [address] Performin g Lab: [address] CLEAN CATCH URINALYSIS (MA-EV) PH OF URINE BY TEST STRIP 5.0 5.0 - 8.0 05/31 Specimen Type: URINE No comment entered. Ordering Provider: MIRIAM FRAZIER Report Released Date/Time : May 23, 2024 12:13 PM Reporting Lab: [facility] [address] [place] [address] 8 Performin g Lab: [address] CLEAN CATCH URINALYSIS (MA-EV) ERYTHROCYTE S [#/VOLUME] IN URINE SEDIMENT BY MICROSCOPY HIGH POWER FIELD 1-5/[HPF] 0 - 5 05/31 Specimen Type: URINE No comment entered. Ordering Provider: MIRIAM FRAZIER Report Released Date/Time : May 23, 2024 12:13 PM Reporting Lab: [place] [address] 8 [facility] g Lab: [place] [address] [facility] CLEAN CATCH URINALYSIS (MA-EV) APPEARANCE OF URINE Clear 05/31 Specimen Type: URINE No comment entered. Ordering Provider: MIRIAM FRAZIER Report Released Date/Time : May 23, 2024 12:13 PM Reporting Lab: [facility] [address] [place] [address] 8 Performin g Lab: [facility] [address] [place] [address] [facility] CLEAN CATCH URINALYSIS (MA-EV) HEMOGLOBIN [MASS/VOLUM E] IN URINE BY TEST STRIP 1+mg/dL 05/31 Specimen Type: URINE No comment entered. Ordering Provider: MIRIAM FRAZIER Report Released Date/Time : May 23, 2024 12:13 PM Reporting Lab: [facility] [address] [place] [address] 8 Performin g Lab: [facility] [address] [place] [address] [facility] CLEAN CATCH URINALYSIS (MA-EV) NITRITE [PRESENCE] IN URINE BY TEST STRIP Negativem g/dL 05/31 Specimen Type: URINE No comment entered. Ordering Provider: MIRIAM FRAZIER Report Released Date/Time : May 23, 2024 12:13 PM Reporting Lab: [facility] [address] [place] [address] 8 Performin g Lab: [facility] [address] [place] [address] [facility] CLEAN CATCH URINALYSIS (MA-EV) LEUKOCYTE ESTERASE [PRESENCE] IN URINE BY TEST STRIP Negative 05/31 Specimen Type: URINE No comment entered. Ordering Provider: MIRIAM FRAZIER Report Released Date/Time : May 23, 2024 12:13 PM Reporting Lab: [facility] [address] [place] [address] 8 Performin g Lab: [facility] [address] [place] [address] [facility] CLEAN CATCH URINALYSIS (MA-EV) MUCUS [PRESENCE] IN URINE SEDIMENT BY LIGHT MICROSCOPY RARE/[LPF ] 05/31 Specimen Type: URINE No comment entered. Ordering Provider: MIRIAM FRAZIER Report Released Date/Time : May 23, 2024 12:13 PM Reporting Lab: [facility] [address] [place] [address] 8 Performin g Lab: [facility] [address] [place], [place] [phone] [address] [facility] CLEAN CATCH URINALYSIS (MA-EV) GLUCOSE [PRESENCE] IN URINE >1000mg/d L 05/31 H Specimen Type: URINE No comment entered. Ordering Provider: MIRIAM FRAZIER Report Released Date/Time : May 23, 2024 12:13 PM Reporting Lab: [facility] [address] [place] [address] 8 Performin g Lab: [place] [address] [facility] COMPREHENS THEA METABOLIC PANEL CREATININE [MASS/VOLUM E] IN SERUM OR PLASMA 1.7 mg/dL .7 - 1.3 11/08 H Specimen Type: PLASMA No comment entered. Ordering Provider: MIRIAM FRAZIER Report Released Date/Time : Apr 20, 2023 11:50 AM Reporting Lab: [place] [address] 8 [facility] g Lab: [place] [address] [facility] COMPREHENS THEA METABOLIC PANEL UREA NITROGEN [MASS/VOLUM E] IN SERUM OR PLASMA 12 mg/dL 9.0 - 25.0 11/08 Specimen Type: PLASMA No comment entered. Ordering Provider: MIRIAM FRAZIER Report Released Date/Time : Apr 20, 2023 11:50 AM Reporting Lab: [place] [phone] Performin g Lab: [place] [address] [facility] COMPREHENS THEA METABOLIC PANEL GLUCOSE [MASS/VOLUM E] IN SERUM OR PLASMA 193 mg/dL 72 - 99 11/08 H Specimen Type: PLASMA No comment entered. Ordering Provider: MIRIAM FRAZIER Report Released Date/Time : Apr 20, 2023 11:50 AM Reporting Lab: [place] [address] 8 [facility] g Lab: [place] [address] [facility] COMPREHENS THEA METABOLIC PANEL SODIUM [MOLES/VOLU ME] IN SERUM OR PLASMA 141 meq/L 136 - 145 11/08 Specimen Type: PLASMA No comment entered. Ordering Provider: MIRIAM FRAZIER Report Released Date/Time : Apr 20, 2023 11:50 AM Reporting Lab: [address] [address] Performin g Lab: [address] [address] [facility] COMPREHENS THEA METABOLIC PANEL POTASSIUM [MOLES/VOLU ME] IN SERUM OR PLASMA 4.3 meq/L 3.5 - 5 11/08 Specimen Type: PLASMA No comment entered. Ordering Provider: MIRIAM FRAZIER Report Released Date/Time : Apr 20, 2023 11:50 AM Reporting Lab: [address] [address] Performin g Lab: [place] [phone] [facility] COMPREHENS THEA METABOLIC PANEL CHLORIDE [MOLES/VOLU ME] IN SERUM OR PLASMA 106 meq/L 98 - 107 11/08 Specimen Type: PLASMA No comment entered. Ordering Provider: MIRIAM FRAZIER Report Released Date/Time : Apr 20, 2023 11:50 AM Reporting Lab: [address] [address] Performin g Lab: [address] [address] [facility] COMPREHENS THEA METABOLIC PANEL CARBON DIOXIDE, TOTAL [MOLES/VOLU ME] IN SERUM OR PLASMA 27 meq/L 22 - 31 11/08 Specimen Type: PLASMA No comment entered. Ordering Provider: MIRIAM FRAZIER Report Released Date/Time : Apr 20, 2023 11:50 AM Reporting Lab: [place] [phone] Performin g Lab: [address] [address] [facility] COMPREHENS THEA METABOLIC PANEL CALCIUM [MASS/VOLUM E] IN SERUM OR PLASMA 9.2 mg/dL 8.4 - 10.4 11/08 Specimen Type: PLASMA No comment entered. Ordering Provider: MIRIAM FRAZIER Report Released Date/Time : Apr 20, 2023 11:50 AM Reporting Lab: [place] [address] 8 Performin g Lab: [place] [address] [facility] COMPREHENS THEA METABOLIC PANEL PROTEIN [MASS/VOLUM E] IN SERUM OR PLASMA 7.3 g/dL 6.0 - 8.6 11/08 Specimen Type: PLASMA No comment entered. Ordering Provider: MIRIAM FRAZIER Report Released Date/Time : Apr 20, 2023 11:50 AM Reporting Lab: [place] [address] 8 Performin g Lab: [place] [address] [facility] COMPREHENS THEA METABOLIC PANEL ALBUMIN [MASS/VOLUM E] IN SERUM OR PLASMA 4.2 g/dL 3.4 - 5.0 11/08 Specimen Type: PLASMA No comment entered. Ordering Provider: MIRIAM FRAZIER Report Released Date/Time : Apr 20, 2023 11:50 AM Reporting Lab: [place] [address] 8 [facility]formin g Lab: [place] [address] [facility] COMPREHENS THEA METABOLIC PANEL BILIRUBIN.T OTAL [MASS/VOLUM E] IN SERUM OR PLASMA 0.6 mg/dL 0.2 - 1.2 11/08 Specimen Type: PLASMA No comment entered. Ordering Provider: MIRIAM FRAZIER Report Released Date/Time : Apr 20, 2023 11:50 AM Reporting Lab: [place] [address] 8 [facility] g Lab: [place] [address] [facility] COMPREHENS THEA METABOLIC PANEL ALKALINE PHOSPHATASE [ENZYMATIC ACTIVITY/VO LUME] IN SERUM OR PLASMA 90 U/L 40 - 150 11/08 Specimen Type: PLASMA No comment entered. Ordering Provider: MIRIAM FRAZIER Report Released Date/Time : Apr 20, 2023 11:50 AM Reporting Lab: [address] [address] Performin g Lab: [address] [facility] COMPREHENS THEA METABOLIC PANEL ASPARTATE AMINOTRANSF ERASE [ENZYMATIC ACTIVITY/VO LUME] IN SERUM OR PLASMA 22 U/L 5 - 34 11/08 Specimen Type: PLASMA No comment entered. Ordering Provider: MIRIAM FRAZIER Report Released Date/Time : Apr 20, 2023 11:50 AM Reporting Lab: [place] [phone] Performin g Lab: [place] [address] [facility] COMPREHENS THEA METABOLIC PANEL ALANINE AMINOTRANSF ERASE [ENZYMATIC ACTIVITY/VO LUME] IN SERUM OR PLASMA 23 U/L 8 - 40 11/08 Specimen Type: PLASMA No comment entered. Ordering Provider: MIRIAM FRAZIER Report Released Date/Time : Apr 20, 2023 11:50 AM Reporting Lab: [place] [phone] Performin g Lab: [place] [address] [facility] COMPREHENS THEA METABOLIC PANEL GLOMERULAR FILTRATION RATE/1.73 SQ M.PREDICTED [VOLUME RATE/AREA] IN SERUM, PLASMA OR BLOOD BY CREATININE- BASED FORMULA (CKD-EPI 2020) 42 11/08 Specimen Type: PLASMA No comment entered. Ordering Provider: MIRIAM FRAZIER Report Released Date/Time : Apr 20, 2023 11:50 AM Reporting Lab: [place] [address] 8 [facility] g Lab: [place] [address] [facility] CBC LEUKOCYTES [#/VOLUME] IN BLOOD BY AUTOMATED COUNT 6.5 10*3/uL 3.6 - 11.2 11/08 Specimen Type: BLOOD No comment entered. Ordering Provider: MIRIAM FRAZIER Report Released Date/Time : Apr 20, 2023 11:50 AM Reporting Lab: [facility] [address] [place] [address] 8 Performin g Lab: [facility] [address] [place] [address] [facility] CBC ERYTHROCYTE S [#/VOLUME] IN BLOOD BY AUTOMATED COUNT 5.76 10*6/uL 4.10 - 5.70 11/08 H Specimen Type: BLOOD No comment entered. Ordering Provider: MIRIAM FRAZIER Report Released Date/Time : Apr 20, 2023 11:50 AM Reporting Lab: [place] [address] 8 [facility] g Lab: [place] [address] [facility] CBC HEMOGLOBIN [MASS/VOLUM E] IN BLOOD 16.3 g/dL 13.1 - 16.8 11/08 Specimen Type: BLOOD No comment entered. Ordering Provider: MIRIAM FRAZIER Report Released Date/Time : Apr 20, 2023 11:50 AM Reporting Lab: [facility] [address] [place] [address] 8 Performin g Lab: [place] [address] [facility] CBC HEMATOCRIT [VOLUME FRACTION] OF BLOOD 50.0 38.2 - 48.4 11/08 H Specimen Type: BLOOD No comment entered. Ordering Provider: MIRIAM FRAZIER Report Released Date/Time : Apr 20, 2023 11:50 AM Reporting Lab: [place] [address] 8 [facility] g Lab: [place] [address] [facility] CBC MCV [ENTITIC VOLUME] BY AUTOMATED COUNT 86.8 fL 80.0 - 100.0 11/08 Specimen Type: BLOOD No comment entered. Ordering Provider: MIRIAM FRAZIER Report Released Date/Time : Apr 20, 2023 11:50 AM Reporting Lab: [facility] [address] [place] [address] 8 Performin g Lab: [place] [address] [facility] CBC MCH [ENTITIC MASS] BY AUTOMATED COUNT 28.3 pg 27.0 - 34.0 11/08 Specimen Type: BLOOD No comment entered. Ordering Provider: MIRIAM FRAZIER Report Released Date/Time : Apr 20, 2023 11:50 AM Reporting Lab: [facility] [address] [place] [address] 8 Performin g Lab: [place] [address] [address] [facility] CBC MCHC [MASS/VOLUM E] BY AUTOMATED COUNT 32.6 g/dL 33.0 - 36.0 11/08 L Specimen Type: BLOOD No comment entered. Ordering Provider: MIRIAM FRAZIER Report Released Date/Time : Apr 20, 2023 11:50 AM Reporting Lab: [place] [address] 8 [facility] g Lab: [place] [address] [facility] CBC PLATELETS [#/VOLUME] IN BLOOD BY AUTOMATED COUNT 188 10*3/uL 150 - 400 11/08 Specimen Type: BLOOD No comment entered. Ordering Provider: MIRIAM FRAZIER Report Released Date/Time : Apr 20, 2023 11:50 AM Reporting Lab: [place] [address] 8 [facility] g Lab: [place] [address] [facility] CBC PLATELET MEAN VOLUME [ENTITIC VOLUME] IN BLOOD BY AUTOMATED COUNT 10.1 fL 7.5 - 11.2 11/08 Specimen Type: BLOOD No comment entered. Ordering Provider: MIRIAM FRAZIER Report Released Date/Time : Apr 20, 2023 11:50 AM Reporting Lab: [place] [address] 8 [facility] g Lab: [place] [address] [facility] CBC ERYTHROCYTE DISTRIBUTIO N WIDTH [RATIO] BY AUTOMATED COUNT 13.3 11.8 - 15.1 11/08 Specimen Type: BLOOD No comment entered. Ordering Provider: MIRIAM FRAZIER Report Released Date/Time : Apr 20, 2023 11:50 AM Reporting Lab: [facility] [address] [facility] [address] 8 Performin g Lab: [facility] [address] [address] [facility] CBC LYMPHOCYTES /100 LEUKOCYTES IN BLOOD BY AUTOMATED COUNT 24.2 11/08 Specimen Type: BLOOD No comment entered. Ordering Provider: MIRIAM FRAZIER Report Released Date/Time : Apr 20, 2023 11:50 AM Reporting Lab: [facility] [address] [address] Performin g Lab: [facility] [address] [facility] [address] [facility] CBC MONOCYTES/1 00 LEUKOCYTES IN BLOOD BY AUTOMATED COUNT 5.2 11/08 Specimen Type: BLOOD No comment entered. Ordering Provider: MIRIAM FRAZIER Report Released Date/Time : Apr 20, 2023 11:50 AM Reporting Lab: [facility] [address] [facility] [address] 8 Performin g Lab: [facility] [address] [facility] [address] [facility] CBC NEUTROPHILS /100 LEUKOCYTES IN BLOOD BY AUTOMATED COUNT 68.3 11/08 Specimen Type: BLOOD No comment entered. Ordering Provider: MIRIAM FRAZIER Report Released Date/Time : Apr 20, 2023 11:50 AM Reporting Lab: [facility] [address] [facility] [address] 8 Performin g Lab: [facility] [address] [address] [facility] CBC EOSINOPHILS /100 LEUKOCYTES IN BLOOD BY AUTOMATED COUNT 1.4 11/08 Specimen Type: BLOOD No comment entered. Ordering Provider: MIRIAM FRAZIER Report Released Date/Time : Apr 20, 2023 11:50 AM Reporting Lab: [facility] [address] [facility] [address] Performin g Lab: [facility] [address] [address] [facility] CBC BASOPHILS/1 00 LEUKOCYTES IN BLOOD BY AUTOMATED COUNT 0.6 11/08 Specimen Type: BLOOD No comment entered. Ordering Provider: MIRIAM FRAZIER Report Released Date/Time : Apr 20, 2023 11:50 AM Reporting Lab: [place] [address] 8 Performin g Lab: [place] [address] [facility] CBC LYMPHOCYTES [#/VOLUME] IN BLOOD BY AUTOMATED COUNT 1.57 10*3/uL 0.77 - 4.50 11/08 Specimen Type: BLOOD No comment entered. Ordering Provider: MIRIAM FRAZIER Report Released Date/Time : Apr 20, 2023 11:50 AM Reporting Lab: [place] [address] 8 Performin g Lab: [place] [address] [facility] CBC MONOCYTES [#/VOLUME] IN BLOOD BY AUTOMATED COUNT 0.34 10*3/uL 0.19 - 0.8 11/08 Specimen Type: BLOOD No comment entered. Ordering Provider: MIRIAM FRAZIER Report Released Date/Time : Apr 20, 2023 11:50 AM Reporting Lab: [place] [address] 8 Performin g Lab: [place] [address] [facility] CBC NEUTROPHILS [#/VOLUME] IN BLOOD BY AUTOMATED COUNT 4.44 10*3/uL 2.10 - 8.00 11/08 Specimen Type: BLOOD No comment entered. Ordering Provider: MIRIAM FRAZIER Report Released Date/Time : Apr 20, 2023 11:50 AM Reporting Lab: [place] [address] 8 Performin g Lab: [place] [address] [facility] CBC EOSINOPHILS [#/VOLUME] IN BLOOD BY AUTOMATED COUNT 0.09 10*3/uL 0.00 - 0.60 11/08 Specimen Type: BLOOD No comment entered. Ordering Provider: MIRIAM FRAZIER Report Released Date/Time : Apr 20, 2023 11:50 AM Reporting Lab: [facility] [address] [facility] [address] 8 Performin g Lab: [facility] [address] [place] [phone] [facility] CBC BASOPHILS [#/VOLUME] IN BLOOD BY AUTOMATED COUNT 0.04 10*3/uL 0.00 - 0.20 11/08 Specimen Type: BLOOD No comment entered. Ordering Provider: MIRIAM FRAZIER Report Released Date/Time : Apr 20, 2023 11:50 AM Reporting Lab: [facility] [address] [place], [place] [phone] 8 Performin g Lab: [facility] [address] [place] [address] [facility] CBC IMMATURE GRANULOCYTE S/100 LEUKOCYTES IN BLOOD BY AUTOMATED COUNT 0.3 11/08 Specimen Type: BLOOD No comment entered. Ordering Provider: MIRIAM FRAZIER Report Released Date/Time : Apr 20, 2023 11:50 AM Reporting Lab: [facility] [address] [place], [place] [phone] 8 Performin g Lab: [facility] [address] [place], [place] [phone] [facility] CBC IMMATURE GRANULOCYTE S [#/VOLUME] IN BLOOD BY AUTOMATED COUNT 0.02 10*3/uL 0.00 - 0.05 11/08 Specimen Type: BLOOD No comment entered. Ordering Provider: MIRIAM FRAZIER Report Released Date/Time : Apr 20, 2023 11:50 AM Reporting Lab: [facility] [address] [place], [place] [phone] 8 Performin g Lab: [facility] [address] [place], [place] [phone] [facility] LIPID PANEL (MA) CHOLESTEROL [MASS/VOLUM E] IN SERUM OR PLASMA 138 mg/dL 0 - 200 11/08 Specimen Type: PLASMA No comment entered. Ordering Provider: MIRIAM FRAZIER Report Released Date/Time : Apr 20, 2023 11:50 AM Reporting Lab: [facility] [address] [place], [place] [phone] 8 Performin g Lab: [place] [address] [facility] LIPID PANEL (MA) TRIGLYCERID E [MASS/VOLUM E] IN SERUM OR PLASMA 149 mg/dL 0 - 150 11/08 Specimen Type: PLASMA No comment entered. Ordering Provider: MIRIAM FRAZIER Report Released Date/Time : Apr 20, 2023 11:50 AM Reporting Lab: [address] [address] [facility]formin g Lab: [address] [address] [facility] LIPID PANEL (MA) CHOLESTEROL IN LDL [MASS/VOLUM E] IN SERUM OR PLASMA BY CALCULATION 62 mg/dL 11/08 Specimen Type: PLASMA No comment entered. Ordering Provider: MIRIAM FRAZIER Report Released Date/Time : Apr 20, 2023 11:50 AM Reporting Lab: [address] [address] Performin g Lab: [address] [address] [facility] LIPID PANEL (MA) CHOLESTEROL IN HDL [MASS/VOLUM E] IN SERUM OR PLASMA 46 mg/dL 40 11/08 Specimen Type: PLASMA No comment entered. Ordering Provider: MIRIAM FRAZIER Report Released Date/Time : Apr 20, 2023 11:50 AM Reporting Lab: [address] [address] 8 [facility]formin g Lab: [address] [address] [facility] Vital Signs Combined list of inpatient and outpatient Vital Signs from Department of Defense and [employer] Affairs, ranging from 12 months to all on record, depending upon the facility. Vital Sign Value Date Comments Source SYSTOLIC BLOOD PRESSURE 149 05/31/2024 08:58:[address] [facility] DIASTOLIC BLOOD PRESSURE 73 05/31/2024 08:58:[address] [facility] PULSE OXIMETRY 97 05/31/2024 08:58:53 [facility] WEIGHT 196.5 05/31/2024 08:58:53 [facility] BMI 27 kg/m2 05/31/2024 08:58:53 [facility] PAIN 0 05/31/2024 08:58:53 [facility] HEIGHT 72 05/31/2024 08:58:53 [facility] TEMPERATURE 97.7 05/31/2024 08:58:53 [place] [facility] PULSE 62 05/31/2024 08:58:53 [place] [facility] RESPIRATION 18 05/31/2024 08:58:53 [place] [facility] Encounters Combined list of: 1) Encounters from Department of Veterans Affairs facilities going backup to the last 18 months, not all [facility] inpatient encounters are included; 2) Encounters from the Department of Defense facilities going backup to 280 months. Location Location Details Encounter Type Encounter Number Reason For Visit Attending Provider ADM Date DC Date Status Dis[facility] Source [place] [place] [id number] Predepl oyment medical screeni ng assessm ent JULIETA PATIÑO 04/21 Released w/o Limitations [place]ria [place]([facility] OUTPAT[facility] [id number] 06/14 Released w/o Limitations [facility] OUT[facility] [id number] 08/28 Released w/o Limitations [facility] OUT[facility] [id number] 11/21 Sick at Home/Quarter s [facility] OUT[facility] [id number] 11/24 Released w/o Limitations [facility] OUTPAT[facility] [id number] 11/24 Released w/o Limitations [facility] OUT[facility] [id number] 11/26 Released w/o Limitations [facility] OUT[facility] [id number] 01/21 Released w/o Limitations [facility] [id number] 01/25 Released with Work/Duty Limitations [facility] OUTPAT[facility] [id number] 02/01 Released with Work/Duty Limitations [facility] OUTPAT[facility] [id number] 03/06 Released w/o Limitations [facility] [place]ria [place]([facility]) OUTPATIENT [id number] *[id number] * DUKE SPEARS 04/14 Released w/o Limitations [place]ie [place]ria [place](Read in[facility]) [facility] Mattie Bermudez, NADIR(Medica l Examinati on) OUTPATIENT [id number] phase I ret patrickerika MARLY ALDEN Y 01/23 Released w/o Limitations Formerly [facility] Mattie Bermudez, NADIR(Medi fe Examina tion) Formerly [facility] Mattie Bermudez, NADIR(Optome try Clinic) OUTPATIENT [id number] DANO PEREZ 01/23 Released w/o Limitations Formerly [facility] Velva, NADIR(Opto metry Clinic) Formerly [facility] Mattie Bermudez, NADIR([facility]) OUTPATIENT [id number] SALEEM MILES 01/23 Released w/o Limitations Formerly [facility] Mattie Bermudez, NADIR([facility] Hearing Program ) Formerly [facility] Mattie Bermudez, NADIR(Medica l Examinati on) OUTPATIENT [id number] PHASE II RET MEE GREER 01/24 Released w/o Limitations Formerly [facility] NADIR Osorio(Medi fe Examina tion) Theater Facility OUTPATIENT [id number] 10/26 Sick at Home/Quarter s Theater Facilit y [facility] Facility OUTPATIENT [id number] 01/10 Released w/o Limitations [facility] OUTPATIENT [id number] 02/23 Released w/o Limitations Theater Facilit y [facility] Outpatient Encounter [id number] 09/08 [facility] Outpatient Encounter [id number] 09/30 [facility] OFFICE O/P EST MOD 30 MIN [id number] Diagnos is: ICD-10- CM E11.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 Diagnos is: ICD-10- CM G47.33 Obstruc tive sleep apnea (adult) (pediat kiarra) NILAY DANIEL H 12/09 [facility] Outpatient Encounter [id number] 01/17 [facility] Outpatient Encounter [id number] 02/28 [facility] Encounter [id number] 03/08 [facility] Outpatient Encounter [id number] 03/08 [facility] Outpatient Encounter [id number] 03/08 [facility] CANALITH REPOSITION ING PROC [id number] Diagnos is: ICD-10- CM H81.11 Benign paroxys mal vertigo , right ear MARIANA RAMIREZ 03/15 [facility] Outpatient Encounter [id number] 04/15 [facility] Outpatient Encounter [id number] 05/31 [facility] Outpatient Encounter [id number] Seferino FRAZIER TEVEN L 05/31 [facility] Outpatient Encounter [id number] 05/31 [facility] OFFICE O/P EST MOD 30 MIN [id number] Diagnos is: ICD-10- CM E11.9 Type 2 diabete s mellitu s without complic ations FREDDIE,S TEVEN L 05/31 [facility] Outpatient Encounter [id number] 05/31 [facility] Procedures Combined list of: 1) Procedures from Department of Veterans Affairs facilities going back up to thelast 18 months, not all VA non-surgical procedures are included; 2) All procedures from the Department of Defense facilities. Procedure Procedure Type Code Date Perfomer Comments Sourc e Threshold Audiogram (Pure Tone) Threshold Audiogram (Pure Tone) 18894 9 SALEEM MILES [facility] Audiometry Group Testing 18843 9 SALEEM MILES DoD Weight Recorded 9 ALDEN LUKE Refer to forms DD 2808 & DD 2807-1 (hard copy in medical records). [facility] ECG Performance of Tracing Only ECG Performance of Tracing Only 91977 9 ALDEN LUKE Refer to forms DD 2808 & DD 2807-1 (hard copy in medical records). [facility] Extensive Color Vision Testing Extensive Color Vision Testing 81071 9 MARLYLOUALDEN Erika Refer to forms DD 2808 & DD 2807-1 (hard copy in medical records). [facility] Screening Test Of Visual Acuity, Quantitative, Bilateral Screening Test Of Visual Acuity, Quantitative, Bilateral 24027 9 MARLY ALDEN Erika Refer to forms DD 2808 & DD 2807-1 (hard copy in medical records). [facility] Venous Pre ure Venous Pressure 91530 9 MARLY ALDEN Erika Refer to forms DD 2808 & DD 2807-1 (hard copy in medical records). DoD Screening Test Of Visual Acuity, Quantitative, Bilateral Screening Test Of Visual Acuity, Quantitative, Bilateral 40578 9 DANO MANSFIELD [facility] Venipuncture Venipuncture 40604 8 PREETI MCCLURE Typhoid Vaccine Vi Capsular Polysaccharide, For Intramus Use Typhoid Vaccine Vi Capsular Polysaccharide, For Intramus Use 79570 7 JULIETA PATIÑO Skin Test Anergy Tuberculin Intradermal Skin Test Anergy Tuberculin Intradermal 54984 7 JULIETA PATIÑO [facility] Immunization Administration Each Additional Vaccine 7 JULIETA PATIÑO Hepatitis B Vaccine (Active); 20 Years and Above 7 JULIETA PATIÑO Anthrax Vaccine, For Subcutaneous Use 7 JULIETA PATIÑO [facility] Immunization Administration One Vaccine Immunization Administration One Vaccine 80884 7 JULIETA PATIÑO [facility] Venipuncture Venipuncture 22250 7 JULIETA PATIÑO SKIN TEST; TUBERCULOSIS, INTRADERMAL 4 DoD COLLECTION OF VENOUS BLOOD BY VENIPUNCTURE 8 DoD SKIN TEST; TUBERCULOSIS, INTRADERMAL 7 [facility] TYPHOID VACCINE, CAPSULAR POLYSACCHARIDE (VICPS), FOR INTRAMUSCULAR USE 5 DoD YELLOW FEVER VACCINE, LIVE, FOR SUBCUTANEOUS USE 2 DoD PURE TONE AUDIOMETRY (THRESHOLD); AIR ONLY 9 DoD SCREENING TEST OF VISUAL ACUITY, QUANTITATIVE, BILATERAL 9 DoD ELECTROCARDIOGRAM, ROUTINE ECG WITH AT LEAST 12 LEADS; TRACING ONLY, WITHOUT INTERPRETATION AND REPORT 9 DoD SPECIAL REPORTS SUCH INSURANCE FORMS, MORE THAN THE INFORMATION CONVEYED IN THE USUAL MEDICAL COMMUNICATIONS OR STANDARD REPORTING FORM 5 DoD Social History Combined list of available smoking, tobacco, and other social history from Department of Defense and Veterans Affairs facilities. Social History Type Response Date Comment Sour e Tobacco smoking status NHIS VA-TOBACCO FORMER USER 11/09/[address] [facility] of [facility] Y[facility] OR MORE 11/09/[address] [facility] History of tobacco use VA-TOBACCO FORMER USER 10/10/[address] [facility] History of tobacco use LIFETIME NON-SMOKER 05/14/[address] [facility] History of tobacco use [facility] NEVER [facility] 10/11/[address] [facility] History of tobacco use [place]-TOBACCO NEVER USED 08/31/[address] [facility] This section is an empty social history section. [facility] Plan of Care List of future care activities from Department of Veterans Affairs facilities. Additional future care activities may be listed in the Assessment and Plan section. Date/Time Care Activity Care Activity Detail Facili ty 01/18/2025 AMBULATORY - NONE AMBULATORY - NONE [facility] Advance Directives List of completed, amended, or rescinded Advance Directives on record at Department of Veterans Affairs facilities. An actual copy of the Directive is not included. Date Advance Directive Provider Source 07/31/2020 ADVANCE DIRECTIVE DISCUSSION CAYDEN SCHUMACHER [facility]
--- OUTSIDE RECORDS SUMMARY | 2024-12-22 00:19 | XMS_ITS | Clinical Summary ---
Author Organization [facility] Address [address] [address] Phone Care Team Providers Care Vehicle Refinisher Name Role Phone Brad Baez DO Primary Care Provider [phone] Allergies No known active allergies Medications furosemide (LASIX) 40 MG tablet Take 40 mg by mouth 1 (one) time each day 1 Active telmisartan (MICARDIS) 20 MG tablet TK 1 T PO QD 0 Active amiodarone (PACERONE) 200 MG tablet Take 200 mg by mouth daily 0 Active rivaroxaban (Xarelto) 20 MG tablet TAKE 1 TABLET DAILY WITH THE EVENING MEAL 0 Active ezetimibe (ZETIA) 10 MG tablet Take 10 mg by mouth 1 (one) time each day 1 Active gabapentin (NEURONTIN) 300 MG capsule TAKE 1 CAPSULE EVERY NIGHT AT BEDTIME FOR 5 DAYS THEN TAKE 1 CAPSULE BY MOUTH TWICE DAILY 1 Active glipiZIDE (GLUCOTROL) 5 MG tablet Take 5 mg by mouth 2 (two) times a day 1 Active FREESTYLE LITE test strip TEST BLOOD SUGAR DIRECTED 1 Active HYDROcodone-ac etaminophen (NORCO) 5-325 MG per tablet Take 1 tablet by mouth every 8 (eight) hours if needed for pain 1 Active TechLite Pen Kidder 32G X 6 MM misc CHECK BLOOD SUGAR ONCE DAILY 1 Active metFORMIN (GLUCOPHAGE) 1000 MG tablet Take 1,000 mg by mouth 2 (two) times a day 1 Active colchicine 0.6 MG tablet TAKE 2 TABLETS BY MOUTH NOW THEN 1 HOUR LATER TAKE 1 TABLET. DO NOT REPEAT UNTIL AT LEAST 3 DAYS HAVE PASSED 1 Active amLODIPine (NORVASC) 5 MG tablet Take 5 mg by mouth 1 (one) time each day 2 Active Empagliflozin 25 MG tablet 1 Active hydrALAZINE (APRESOLINE) 25 MG tablet TAKE 1 TABLET BY MOUTH THREE TIMES DAILY NEEDED FOR HYPERTENSION - IF SYSTOLIC BLOOD PRESSURE IS OVER 150 2 Active metoprolol tartrate (LOPRESSOR) 25 MG tablet Take 12.5 mg by mouth 2 (two) times a day 2 Active Semaglutide, 1 MG/DOSE, (Ozempic, 1 MG/DOSE,) 4 MG/3ML solution pen-injector 1 Active sildenafil (VIAGRA) 100 MG tablet TAKE ONE TABLET BY MOUTH 30 MINUTES TO 4 HOURS BEFORE ACTIVITY NEEDED FOR SEXUAL ACTIVITY 2 Active tadalafil (CIALIS) 20 MG tablet TAKE 1 TABLET BY MOUTH ONCE DAILY NEEDED FOR SEXUAL ACTIVITY, TAKE APPROXIMATELY 30 MINUTES BEFORE SEXUAL ACTIVITY DO NOT TAKE MORE THAN 1 DOSE PER 24 HOURS 2 Active rosuvastatin (CRESTOR) 20 MG tablet Take 20 mg by mouth 1 (one) time each day 2 Active Active Problems Problem Noted Date Diagnosed Date History of placement of stent for coronary arter y disease 01/01/2017 Paroxysmal atrial fibrillation 01/01/2017 Coronary arteriosclerosis 07/27/2014 Overview (10/17/2020): Coronary arteriosclerosis in [place] artery Coronary arteriosclerosis in [place] artery Immunizations Immunization Administration Dates Next Due Sars-cov-2, Unspecified 09/23/2020 Family History Medical History Relation Comments Heart disease Father Congestive heart failure Mother Diabetes Mother Relation Status Comments Father Mother Social History Tobacco Use Types Packs/Day Years Used Date Smoking Tobacco: Never Smokeless Tobacco: Never Alcohol Use Standard Drinks/Week Comments Yes 0 (1 standard drink = 0.6 oz pur e alcohol) Sex and Gender Information Value Date Recorded Sex Assigned at Male 10/10/2020 8:09 AM MDT Legal Sex Male 11:40 AM [facility] Gender Identity Male 10/10/2020 8:09 AM MDT Sexual Orientation Straight 10/10/2020 8: 09 AM MDT Last Filed Vital Signs Vital Sign Reading Time Taken Comments Blood Pressure 128/72 02/10/2022 2:17 PM CDT Pulse - - Temperature 36.6 C (97.8 F) 02/10/2022 2:17 PM CDT Respiratory Rate 18 02/10/2022 2:17 PM CDT Oxygen Saturation - - Inhaled Oxygen Concentration - - Weight 88.5 kg (195 lb) 02/10/2022 2:17 PM CDT Height 182.9 cm (6') 02/10/2022 2:17 PM CDT Body Mass Index 26.45 02/10/2022 2:17 PM CDT Plan of Treatment Health Maintenance Due Date Last Done Comments Pneumococcal PPSV23/PCV13 65 + Years / Low and Medium Risk (1 of 4 - PCV) 2001 Influenza Vaccine (Season Ended) 2025 Insurance MEDICARE MEDICARE [facility] Care Teams Vehicle Refinisher Relationship Specialty Start Date End Date Brad Baez DO [address] [place] [address] PCP - General Internal Medicine 02/10/22
--- OUTSIDE RECORDS SUMMARY | 2024-12-22 00:19 | XMS_ITS | Continuity of Care Document ---
Author Organization [facility] Address [address] [place] [address] Phone Care Team Providers Care Executive Staff Assistant Name Role Phone Sandie Cr MD Unavailable Unavailable Advance Directives Directive Yes / No Effective Date File Name No Information Encounters Encounter Description Practice Location Reason(s) For Visit Diagnoses Date Provider Providers Copied on Encounter [facility], [address] [place] [address] [address], [place], [place], [id number], [place] tel:[phone] [address] [facility] Professional No Information 5 Shaye Hooper. [address] [facility] [address], [place], [address], [place]. tel:[phone] Family History Family Member Type Diagnosis Age At Onset No Information Payers Payer name Insurance type Covered green party ID Authoriza tion(s) [facility] [id number] Social History Type Description Quantity Date Captured Comments Sex Male Smoking Status No Information Chief Complaint And Reason For Visit No Information Reason For Referral Reason For Referral No Information History Of Present Illness Encounter Date Complaint History Of Prese nt Illness No Information Functional Status Date Functional Assessmen t No Information Instructions Date Instruction Additional Infor mation No Information Assessments Type Assessment Date No Information Patient Care Teams Name Effective Dates (start - stop) Status Members No Information
--- OUTSIDE RECORDS SUMMARY | 2024-12-22 00:20 | XMS_ITS | Clinical Summary ---
Author Organization [facility] Address [address] [place] [address] Care Team Providers Care Public Health Educator Name Role Phone Jones Kuhn MD Primary Care Provider [phone] Social History Tobacco Use Types Packs/Day Years Used Date Smoking Tobacco: Never Assessed Sex and Gender Information Value Date Recorded Sex Assigned at Not on file Legal Sex Male 3:45 PM BOTTOM LINER Gender Identity Not on file Sexual Orientation Not on file Plan of Treatment Health Maintenance Due Date Last Done Comments Colorectal Cancer Screening Colonoscopy (10 Years) 1951 Hepatitis C 1969 DTaP, Tdap and Td Vaccines ( 1 - Tdap) 1970 Pneumococcal Vaccine: 50+ Ye ars (1 of 1 - PCV) 2001 Zoster Vaccines (1 of 2) 2001 Annual Medicare Wellness Visit 2016 COVID-19 Vaccine ( - 2023-2 5 season) 2024 RSV Immunization or 60+ Years (1 - 1-dose 75+ series) 2026 Meningococcal B Vaccine Aged Out No l onger eligible based on patient's age to complete this topic Meningococcal Vaccine Aged Out No waqas ricarda eligible based on patient's age to complete this topic RSV Immunizations Under 20 Months Aged Out No longer eligible based on patient's age to complete this topic Insurance MEDICARE [facility] Care Teams Public Health Educator Relationship Specialty Start Date End Date Jones Kuhn MD [address] [place], [place] [id number] PCP - General INTERNAL MEDICINE 08/29/20
--- OUTSIDE RECORDS SUMMARY | 2024-12-22 00:20 | XMS_ITS | Encounter Summary ---
Author Organization [facility] Address [address] [place] [address] Care Team Providers Care Box Stapler Name Role Phone David Chiu MD Primary Care Provider [phone] David Chiu MD Primary Care Provider [phone] Jones Kuhn MD Primary Care Provider [phone] Brad Baez DO Primary Care Provider Kal Camacho MD Primary Care Provider [phone] Bridgett Monroy NP Primary Care Provider [phone] Encounter Details Date Type Department Care Team (Late st Contact Info) Description 08/05/2016 Orders Only [facility] ProviderIvania MD [address] [place] [address] Social History Tobacco Use Types Packs/Day Years Used Date Smoking Tobacco: Never Alcohol Use Standard Drinks/Week Comments Yes 0 (1 standard drink = 0.6 oz pur e alcohol) Sex and Gender Information Value Date Recorded Sex Assigned at Male 09/10/2018 10:45 AM DISABILITY RATER Legal Sex Male 1:19 AM DISABILITY RATER Gender Identity Not on file Sexual Orientation Straight 09/10/2018 10 :45 AM DISABILITY RATER documented as of this encounter Plan of Treatment Not on file documented as of this encounter Procedures Procedure Name Priority Date/Time Associated Diagnosis Comments CARDIOLOGY REPORT 08/05/2016 documented in this encounter Results * CARDIOLOGY REPORT (08/05/2016) Anatomical Region Laterality Modality Other Narrative 08/05/2016 Ordered by an unspecified provider. us Historical Provider [facility] JAVIER WALKER Final Result documented in this encounter Visit Diagnoses Not on filedocumented in this encounter Care Teams Box Stapler Relationship Specialty Start Date End Date David Chiu MD [address] [place] [address] PCP - General 10/03/16 09/12/20 David Chiu MD [address] [place] [address] PCP - General 03/16/15 10/02/16 Jones Kuhn MD [address] [place] [address] PCP - General Internal Medicine 09/13/20 06/09/22 Brad Baez DO [address] [place] [address] PCP - General Internal Medicine 06/10/22 09/22/22 Kal Camacho MD [address] [place], [place] [id number] PCP - General Internal Medicine 09/23/22 04/08/23 Bridgett Monroy NP [address] [place], [place] [id number] PCP - General Nurse Practitioner 04/09/23 documented as of this encounter
[2024-12-22 06:47] VITALS: BP 99/63; PULSE 64; RESP 18; TEMP 36.2; O2SAT 98; BMI 25.2
[2024-12-22] MEDS: LACTATED RINGERS 1,000 ML 150 ML IV CONT (07:02)
--- NOTE | 2024-12-22 07:15 | P.PNAN_ITS ---
Anes - Initial Pre Proc Eval Procedure: Operation Date: 12/22/24 08:00 Proposed Procedures p Screening Colonoscopy - Chadd Verduzco MD Date/Time: 12/22/24 07:15 Surgeon: Chadd Verduzco MD Pre Op Diagnosis: Hx of polyps Patient Data Age: 74 Gender: M Height: 1.83 m Weight: 84.5 kg Last Vital Signs Temp 36.2 C L 12/22/24 06:47 Pulse 64 12/22/24 06:47 Resp 18 12/22/24 06:47 BP 99/63 L 12/22/24 06:47 Pulse Ox 98 12/22/24 06:47 O2 Del Method Room Air 12/22/24 06:47 Allergies Allergy/AdvReac Type Severity Reaction Status Date / Time No Known Allergies Allergy Verified 12/22/24 06:45 Home Medications ?Medication ?Instructions ?Recorded ?Confirmed ?Type rivaroxaban 20 mg tablet (Xarelto) 20 mg PO DAILY 05/28/19 12/22/24 History cholecalciferol (vitamin D3) 50 50 mcg PO DAILY #90 caps 11/02/20 12/22/24 Rx mcg (2,000 unit) capsule pen needle, diabetic 32 gauge x #100 ea 01/14/21 10/17/24 Rx 5/32 (BD Ultra-Fine Araceli Pen Needle) aspirin 81 mg chewable tablet 81 mg PO DAILY 02/15/21 12/22/24 History amiodarone 200 mg tablet 200 mg PO DAILY 01/08/23 12/22/24 History blood-glucose meter 05/18/23 10/17/24 History empagliflozin 25 mg tablet See Rx Instructions .Route 10/17/24 12/22/24 Rx (Jardiance) .COMPLEX #90 tabs rosuvastatin 20 mg tablet See Rx Instructions .Route 10/17/24 12/22/24 Rx .COMPLEX #90 tabs semaglutide 2 mg/dose (8 mg/3 mL) 2 mg (0.75 mL) subcut WEEKLY #9 mL 10/17/24 12/16/24 Rx subcutaneous pen injector (Ozempic) telmisartan 20 mg tablet See Rx Instructions .Route 10/17/24 12/22/24 Rx .COMPLEX #90 tabs Patient hx anesthesia problems: none Family hx anesthesia problems: none Results Review: All pre-operative results and documents have been reviewed as part of the pre- operative evaluation. [facility] Past Medical History Medical History Vitamin D deficiency Secondary renal hyperparathyroidism Benign hypertension with chronic kidney disease Erectile dysfunction Gout Seasonal allergies BPPV (benign paroxysmal positional vertigo) Spinal stenosis of lumbar region ADRYAN (obstructive sleep apnea) Osteoarthritis Dyslipidemia CAD (coronary artery disease) Finger fracture A-fib resolved Type II diabetes mellitus Surgical History Surgical History Hx of tonsillectomy Stented coronary artery x3 Social History Social History Smoking status: Never smoker Second hand tobacco smoke exposure: Yes Alcohol intake: never Alcohol use details: Rarely Substance use: never Substance use type: does not use Do You Feel Safe in your Home?: Yes Lack of Transportation: No Lack of Food: Never True Current Housing: I Have Housing Concerned About Future Housing: No Difficulty Paying Gas/Electric Bills: No Difficulty Paying for Meds: No Currently Unemployed: No Education: Bachelor's Degree Difficulty w/ Childcare or Family Care: No Living arrangements: with family Additional living arrangements comments: partner Occupation/Education: retired Gender identity (if verbalized by the patient): Male Sexual Orientation (if Verbalized by the Patient): Straight or Heterosexual Spiritual care concerns: No Agree to blood products: Yes Anes - Eval Final PreProcedure Day of Procedure 12/22/24 07:15 Patient weight: overweight Heart: regular rate and rhythm Lungs: clear to auscultation Airway: Mallampati scale class II Neurological: alert and oriented Last oral intake: >/= 8 hours ASA classification: III Emergent: no Anesthetic plan: proceed Anesthesia type and monitoring: general GIVS and standard monitoring Results Review: All pre-operative results and documents have been reviewed as part of the pre- operative evaluation. Informed Consent: The patient's anesthetic plan and its attendant risks and benefits were discussed with the patient/family/POA. Questions were solicited and answers provided to the satisfaction of the patient/family/POA.
--- NOTE | 2024-12-22 07:43 | PM.HPGS ---
History of Present Illness History of Present Illness Consent: Risks, benefits, and alternatives have been discussed and questions answered. Patient agrees to proceed with procedure. 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 Erectile dysfunction Gout Seasonal allergies BPPV (benign paroxysmal positional vertigo) Spinal stenosis of lumbar region ADRYAN (obstructive sleep apnea) Osteoarthritis Dyslipidemia CAD (coronary artery disease) Finger fracture A-fib resolved Type II diabetes mellitus Surgical History Surgical History Hx of tonsillectomy Stented coronary artery x3 Social History Social History Smoking status: Never smoker Second hand tobacco smoke exposure: Yes Alcohol intake: never Alcohol use details: Rarely Substance use: never Substance use type: does not use Do You Feel Safe in your Home?: Yes Lack of Transportation: No Lack of Food: Never True Current Housing: I Have Housing Concerned About Future Housing: No Difficulty Paying Gas/Electric Bills: No Difficulty Paying for Meds: No Currently Unemployed: No Education: Bachelor's Degree Difficulty w/ Childcare or Family Care: No Living arrangements: with family Additional living arrangements comments: partner Occupation/Education: retired Gender identity (if verbalized by the patient): Male Sexual Orientation (if Verbalized by the Patient): Straight or Heterosexual Spiritual care concerns: No Agree to blood products: Yes Meds Home Medications and Allergies Home Medications ?Medication ?Instructions ?Recorded ?Confirmed ?Type rivaroxaban 20 mg tablet (Xarelto) 20 mg PO DAILY 05/28/19 12/22/24 History cholecalciferol (vitamin D3) 50 50 mcg PO DAILY #90 caps 11/02/20 12/22/24 Rx mcg (2,000 unit) capsule pen needle, diabetic 32 gauge x #100 ea 01/14/21 10/17/24 Rx 5/32 (BD Ultra-Fine Araceli Pen Needle) aspirin 81 mg chewable tablet 81 mg PO DAILY 02/15/21 12/22/24 History amiodarone 200 mg tablet 200 mg PO DAILY 01/08/23 12/22/24 History blood-glucose meter 05/18/23 10/17/24 History empagliflozin 25 mg tablet See Rx Instructions .Route 10/17/24 12/22/24 Rx (Jardiance) .COMPLEX #90 tabs rosuvastatin 20 mg tablet See Rx Instructions .Route 10/17/24 12/22/24 Rx .COMPLEX #90 tabs semaglutide 2 mg/dose (8 mg/3 mL) 2 mg (0.75 mL) subcut WEEKLY #9 mL 10/17/24 12/16/24 Rx subcutaneous pen injector (Ozempic) telmisartan 20 mg tablet See Rx Instructions .Route 10/17/24 12/22/24 Rx .COMPLEX #90 tabs Allergies Allergy/AdvReac Type Severity Reaction Status Date / Time No Known Allergies Allergy Verified 12/22/24 06:45 Vital Signs Vital Signs - 24 hr 12/22/24 06:47 Temperature 97.2 F L Pulse Rate 64 Respiratory Rate 18 Blood Pressure 99/63 L Pulse Oximetry 98 Oxygen Delivery Room Air Exam Const: General: comfortable and no acute distress HENMT: Face/Nose/Sinus: Normal nares present Eyes: General: appearance normal, both eyes and all related structures Neck: Neck: no JVD Resp: Auscultation: clear to auscultation bilaterally Cardio: Rate: regular rate Rhythm: regular rhythm GI: Inspection: non-distended GI Palp: Yes Soft to palpation Skin: General skin exam: normal color Neuro: Speech: normal speech Extrem: General: normal to inspection Psych: Mental Status: mental status grossly normal Assessment and Plan Assessment and plan (1) Adenomatous colon polyp: Code(s): D12.6 - Benign neoplasm of colon, unspecified Status: Acute Assessment and Plan: colonoscopy
--- NOTE | 2024-12-22 07:59 | S_PTH ---
PATIENT: Sabino Pepper LOC: [facility]#:[id number] AGE/SX: 74/M ROOM: RE12/22/[address]: Chadd Verduzco MD : [id number] BED: DIS: 12/22/2024 SPEC #: [id number] RECD: 12/22/24 08:36 STATUS: ESTELA REChidi #: [id number] RIA: 12/22/24 07:[address]: Chadd Verduzco DEPT: [facility] Surgical RECD BY: Deepti Nash ENTERED: 12/22/24 08:36 SP TYPE: Surgical OTHR DR: Bridgett Monroy, ANDRA Tissues: A - Colon Polypectomy B - Colon Polypectomy C - Colon Polypectomy Procedures: Hematoxylin and Eosin Stain Gross and Microscopic Level 4
[2024-12-22 08:08] LABS: Glucose Point of Care 110 mg/dl (65-105)
[2024-12-22 08:13] VITALS: BP 77/46; PULSE 61; RESP 17; O2SAT 95
[2024-12-22 08:18] VITALS: BP 91/51
[2024-12-22 08:23] VITALS: BP 90/52; PULSE 54; O2SAT 95
[2024-12-22 08:33] VITALS: BP 96/57; PULSE 60; O2SAT 96
[2024-12-22 08:44] VITALS: BP 103/63; PULSE 60; O2SAT 99
== END 2024-12-22 08:50 | disposition home or self-care (01) ==
PROVIDERS: PCP Nurse Practitioner Family; Referring Provider Internal Medicine Gastroenterology; Visit Provider Internal Medicine Gastroenterology
PROC: 0DJD8ZZ Inspection of Lower Intestinal Tract, Via Natural or Artificial Opening Endoscopic (ICD-10-PCS; CPT 45378; principal; 2024-12-22 08:00)
DX: Z12.11 Encounter for screening for malignant neoplasm of colon (principal); D12.2 Benign neoplasm of ascending colon; D12.3 Benign neoplasm of transverse colon; D12.4 Benign neoplasm of descending colon; K63.5 Polyp of colon; K64.8 Other hemorrhoids; E11.9 Type 2 diabetes mellitus without complications
CPT/HCPCS: 45385; 82948; 88305; J2003; J2371; J2704; J7120